=== PATIENT | female | born 1955 | race Caucasian/White ===

== ENCOUNTER 2018-10-20 11:31 | Emergency (ER) | payer OTHER ==
[2018-10-20] MEDS ORDERED: ONDANSETRON 4 MG/2 ML VIAL IVP ONE (12:34)
[2018-10-20] MEDS ORDERED: METOCLOPRAMIDE 10 MG/2 ML VIAL IVP ONE (12:37)
[2018-10-20] MEDS ORDERED: DEXAMETHASONE 10 MG/ML VIAL IVP ONE (12:37)
[2018-10-20] MEDS ORDERED: NS 1,000 ML IV ONE ×2 (12:37→14:14)
[2018-10-20 12:38] LABS: PLATELET COUNT 310 10^3/uL (150-400)
[2018-10-20] MEDS ORDERED: ASPIRIN 81 MG CHEWABLE TAB PO ONE (12:41)
--- NOTE | 2018-10-20 12:44 | EDPHY ---
H & P Stated Complaint: Mid-[place] CP rad to back since last night, nausea, no relief, headache Time Seen by Provider: 10/20/18 12:34 HPI/ROS: CHIEF COMPLAINT: Chest pain and headache HISTORY OF PRESENT ILLNESS: The patient is a 63-year-old female who states that she went skiing yesterday which often gives her headache. When she got home around 6:00 p.m. She developed a migraine. She states that she has had migraines in the past but not for about 20 years. She does not remember having an aura. No fever. No trauma. Then this morning she developed chest pain as well. No shortness of breath. No nausea. No history of cardiac disease. No history of pulmonary disease. No recent infections. She states that the pain is in her sternal area and radiates to her back. No weakness or numbness. No vision changes. Severity: Moderate Modifying factors: None REVIEW OF SYSTEMS: Constitutional: denies: chills, fever, recent illness, recent injury EENTM: denies: blurred vision, double vision, nose congestion Respiratory: denies: cough, shortness of breath Cardiac: See HPI Gastrointestinal/Abdominal: denies: abdominal pain, diarrhea, nausea, vomiting, blood streaked stools Genitourinary: denies: dysuria, frequency, hematuria, pain Musculoskeletal: denies: joint pain, muscle pain Skin: denies: lesions, rash, jaundice, bruising Neurological: denies: headache, numbness, paresthesia, tingling, dizziness, weakness Hematologic/Lymphatic: denies: blood clots, easy bleeding, easy bruising Immunologic/allergic: denies: HIV/AIDS, transplant 10 systems reviewed and negative except as noted EXAM: GENERAL: Well-appearing, well-nourished and in no acute distress. HEAD: Atraumatic, normocephalic. EYES: Pupils equal round and reactive to light, extraocular movements intact, sclera anicteric, conjunctiva are normal. ENT: TMs normal, nares patent, oropharynx clear without exudates. Moist mucous membranes. NECK: Normal range of motion, supple without lymphadenopathy or JVD. LUNGS: Breath sounds clear to auscultation bilaterally and equal. No wheezes rales or rhonchi. HEART: Regular rate and rhythm without murmurs, rubs or gallops. ABDOMEN: Soft, nontender, normoactive bowel sounds. No guarding, no rebound. No masses appreciated. BACK: No CVA tenderness, no spinal tenderness, step-offs or deformities EXTREMITIES: Normal range of motion, no pitting or edema. No clubbing or cyanosis. NEUROLOGICAL: Cranial nerves II through XII grossly intact. Normal speech, normal gait. 5/5 strength, normal movement in all extremities, normal sensation , normal reflexes PSYCH: Normal mood, normal affect. SKIN: Warm, dry, normal turgor, no visible rashes or lesions. Source: Patient Exam Limitations: No limitations - Personal History Current Tetanus/Diphtheria Vaccine: Yes - Medical/Surgical History Hx Asthma: No Hx Chronic Respiratory Disease: No Hx Diabetes: No Hx Cardiac Disease: No Hx Renal Disease: No Hx Cirrhosis: No Hx Alcoholism: No Hx HIV/AIDS: No Hx Splenectomy or Spleen Trauma: No Other PMH: R hip replace - Family History Significant Family History: No pertinent family hx - Social History Smoking Status: Never smoked Alcohol Use: Sober Drug Use: None Constitutional: Initial Vital Signs Temperature (C) 36.5 C 10/20/18 11:38 Heart Rate 90 10/20/18 11:38 Respiratory Rate 18 10/20/18 11:38 Blood Pressure 94/66 L 10/20/18 11:38 O2 Sat (%) 93 10/20/18 11:38 O2 Delivery Mode Room Air Allergies/Adverse Reactions: No Known Allergies Allergy (Unverified 10/21/18 05:28) Home Medications: Medication Instructions Recorded Aspirin [Aspirin 81mg (*)] 81 mg PO DAILY 10/21/18 Cholecalciferol Vit D3 [Vitamin D3 3,000 units PO DAILY 10/21/18 (*)] Herbals/Supplements -Info Only 1 ea PO DAILY 10/21/18 Simvastatin [Simvastatin] 10 mg PO HS 10/21/18 Medical Decision Making - Diagnostics EKG Interpretation: An EKG obtained and was read and documented in trace view. Please see trace view for full reading and report. Sinus rhythm, right bundle branch block new compared to 2009. A repeat EKG obtained and was read and documented in trace view. Please see trace view for full reading and report. Right bundle branch block, no acute ischemic changes, unchanged from previous Imaging: Discussed imaging studies w/ call center dispatcher Radiologist ED Course/Re-evaluation: Patient's headache and chest pain have resolved. Repeat troponin EKG remain reassuring. Discussed further observation or admission. Engaged in shared decision making. Patient is eager to go home. She states that she thinks she was just dehydrated and feels much better after the IV hydration. Blood pressure is currently 102/64 which is baseline for her. Discussed indications for returning. We also discussed importance of follow-up. Differential Diagnosis: Partial list of the Differential diagnosis considered include but were not limited to; acute coronary disease, dehydration, viral infection, migraine and although unlikely based on the history and physical exam, I also considered dissection, aneurysm, pneumonia, pneumothorax. I discussed these differential diagnoses and the plan with the patient as well as the usual and expected course. The patient understands that the diagnosis is provisional and that in medicine we are not always correct and that further workup is often warranted. Usual and customary warnings were given. All of the patient's questions were answered. The patient was instructed to return to the emergency department should the symptoms at all worsen or return, otherwise to followup with the physician as we discussed. - Data Points Laboratory Results: Laboratory Results 10/20/18 12:00 10/20/18 12:00 Medications Given: Discontinued Medications Aspirin (Aspirin) 324 mg PO EDNOW ONE Stop: 10/20/18 12:42 Last Admin: 10/20/18 13:18 Dose: 324 mg Dexamethasone (Decadron Injection) 10 mg IVP EDNOW ONE Stop: 10/20/18 12:38 Last Admin: 10/20/18 13:19 Dose: 10 mg Sodium Chloride (Ns) 1,000 mls @ 0 mls/hr IV ONCE ONE; Wide Open PRN Reason: Protocol Stop: 10/20/18 12:38 Last Admin: 10/20/18 13:19 Dose: 1,000 mls Sodium Chloride (Ns) 1,000 mls @ 0 mls/hr IV EDNOW ONE; Wide Open PRN Reason: Protocol Stop: 10/20/18 14:15 Last Admin: 10/20/18 14:40 Dose: 1,000 mls Ketorolac Tromethamine (Toradol) 30 mg IVP EDNOW ONE Stop: 10/20/18 15:23 Last Admin: 10/20/18 15:24 Dose: 30 mg Metoclopramide HCl (Reglan Injection) 10 mg IVP EDNOW ONE Stop: 10/20/18 12:38 Last Admin: 10/20/18 13:18 Dose: 10 mg Ondansetron HCl (Zofran) 4 mg IVP EDNOW ONE Stop: 10/20/18 12:35 Last Admin: 10/20/18 12:43 Dose: 4 mg Point of Care Test Results: Chemistry 10/20/18 10/20/18 14:28 12:24 POC Troponin I 0.01 ng/mL ng/mL 0.01 ng/mL ng/mL (0.00-0.08) (0.00-0.08) Departure - Departure Disposition: Home, Routine, Self-Care Clinical Impression: Chest pain Qualifiers: Chest pain type: unspecified Qualified Code(s): R07.9 - Chest pain, unspecified Migraine Qualifiers: Migraine type: unspecified Status migrainosus presence: without status migrainosus Intractability: not intractable Qualified Code(s): G43.909 - Migraine, unspecified, not intractable, without status migrainosus Condition: Serious Instructions: Chest Pain (ED), Migraine Headache (ED) Referrals: Ariana Dodge MD [Primary Care Provider] - 2-3 days, call for appt.
[2018-10-20] MEDS ORDERED: IOPAMIDOL (ISOVUE 370) 100 ML BTL IV ONE (12:47)
--- NOTE | 2018-10-20 12:47 | CPEKG ---
Test Reason : OPEN Blood Pressure : / mmHG Vent. Rate : 083 BPM Atrial Rate : 083 BPM P-R Int : 156 ms QRS Dur : 125 ms QT Int : 406 ms P-R-T Axes : 037 031 -01 degrees QTc Int : 477 ms Sinus rhythm Probable left atrial enlargement Right bundle branch block Confirmed by Manan Horne ([id number]) on 10/20/2018 12:46:36 PM Referred By: Confirmed By:Manan Horne
[2018-10-20 12:49] LABS: INR 0.95 (0.83-1.16); PROTIME(PATIENT) 12.9 SEC (12.0-15.0)
--- NOTE | 2018-10-20 14:29 | CPEKG ---
Test Reason : OPEN Blood Pressure : / mmHG Vent. Rate : 083 BPM Atrial Rate : 083 BPM P-R Int : 161 ms QRS Dur : 128 ms QT Int : 415 ms P-R-T Axes : 039 031 -12 degrees QTc Int : 488 ms Sinus rhythm Right bundle branch block Confirmed by Manan Horne ([id number]) on 10/20/2018 2:28:51 PM Referred By: Confirmed By:Manan Horne
[2018-10-20] MEDS ORDERED: KETOROLAC 30 MG/1 ML SDV IVP ONE (15:22)
[2018-10-20 15:33] VITALS: BP 114/54
== END 2018-10-20 15:33 | disposition home or self-care (01) ==
DX: G43.909 Migraine, unspecified, not intractable, without status migrainosus (principal); Z96.641 Presence of right artificial hip joint
CPT/HCPCS: 84484-PO; 96374; J1100; J1885; J2405; J2765; Q9967

== ENCOUNTER 2018-10-21 05:26 | Inpatient (IN) | payer OTHER ==
[2018-10-21] MEDS ORDERED: NS 1,000 ML IV ONE ×2 (05:41→09:13)
--- NOTE | 2018-10-21 05:41 | EDPHY ---
H & P Stated Complaint: SOB, "constant cough" Time Seen by Provider: 10/21/18 05:41 HPI/ROS: HPI CHIEF COMPLAINT: Shortness of breath, cough, hypoxia. HISTORY OF PRESENT ILLNESS: 63-year-old female, presents emergency room with progressively worsening shortness of breath over the last evening. Started coughing around 8:00 p.m.. Progressively getting worse. Could not catch her breath tonight. Cough is rather nonproductive with some sputum. Does not like to take a deep breath in. When she takes deep breath in it causes her to cough worse. No chest pain or chest pressure. Does endorse shortness of breath. It is noted upon arrival to the emergency room the patient is hypoxic 79% room air Additionally noted to be tachycardic. Not hypotensive. Patient states she has otherwise felt well. No fever. She went skiing on Wednesday did developed a headache and some shortness of breath. Past Medical History: Denies significant medical history Past Surgical History: Denies significant surgical history Social History: Denies drugs alcohol tobacco. Family History: Noncontributory. ROS REVIEW OF SYSTEMS: 10 Systems were reviewed and negative with the exception of the elements mentioned in the history of present illness. Exam Constitutional respiratory distress, triage nursing summary reviewed, vital signs reviewed, awake/alert. Hypoxic tachycardic. 79% room air bat Eyes normal conjunctivae and sclera, EOMI, PERRLA. HENT normal inspection, atraumatic, moist mucus membranes, no epistaxis, neck supple/ no meningismus, no raccoon eyes. Respiratory decreased breath sounds bilaterally. Crackles right lung. Faint wheezing. Cardiovascular tachycardic regular rhythm, no murmur, no edema, distal pulses normal. Gastrointestinal soft, non-tender, no rebound, no guarding, normal bowel sounds, no distension, no pulsatile mass. Genitourinary no CVA tenderness. Musculoskeletal no midline vertebral tenderness, full range of motion, no calf swelling, no tenderness of extremities, no meningismus, good pulses, neurovascularly intact. Skin pink, warm, & dry, no rash, skin atraumatic. Neurologic awake, alert and oriented x 3, AAOx3, moves all 4 extremities equally, motor intact, sensory intact, CN II-XII intact, normal cerebellar, normal vision, normal speech. Psychiatric normal mood/affect. Heme/Lymph/Immune no lymphadenopathy. Differential Diagnosis: Includes but is not limited to in a particular order acute hypoxic respiratory failure, pneumonia, high altitude pulmonary edema, CHF , ACS, PE Medical Decision Making: Plan for this patient IV establishment blood draw, IV fluid bolus, DuoNeb breathing treatment, oxygen supplemental, telemetry monitor, EKG, troponin, D-dimer chest x-ray. Re-evaluation: EKG interpretation by me on record in [employer] system. Impression time of EKG 5:50 a.m. Sinus tach 110 right bundle-branch block present. No signs of ST elevation. Compared to the old EKG October 20 is noted be different for tachycardia. This patient's BNP is noted to be elevated. The chest x-ray shows pulmonary edema. I am concerned about decompensated heart failure. Her fluids have been held here. I have ordered the patient IV Lasix. The patient be admitted to the hospitalist service for decompensated heart failure. She will need an echocardiogram. The patient's lactic acid is noted to be elevated. However she is afebrile here. WBC noted. I do not believe this is from sepsis. Believe this to be from end-organ damage from CHF. 7:01 a.m. The hospitalist service as been consult Dr. Nick. Accepts admission. Patient need to be admitted for CHF, hypoxia, pulmonary edema volume overload. IV Lasix 40 mg has been ordered. IV fluids have been stopped. EKG shows no ST elevation Unclear etiology of her CHF at this time. I have ordered echo. Updated patient agrees for admission. Patient is hemodynamically stable for admission. Source: Patient - Personal History Current Tetanus Diphtheria and Acellular Pertussis (TDAP): Yes - Medical/Surgical History Hx Asthma: No Hx Chronic Respiratory Disease: No Hx Diabetes: No Hx Cardiac Disease: No Hx Renal Disease: No Hx Cirrhosis: No Hx Alcoholism: No Hx HIV/AIDS: No Hx Splenectomy or Spleen Trauma: No Other PMH: R hip replace - Social History Smoking Status: Never smoked Constitutional: Initial Vital Signs Temperature (C) 36.6 C 10/21/18 05:28 Heart Rate 109 H 10/21/18 05:28 Respiratory Rate 20 10/21/18 05:28 Blood Pressure 97/72 L 10/21/18 05:28 O2 Sat (%) 82 L 10/21/18 05:28 O2 Delivery Mode Oxymizer O2 (L/minute) 10 Allergies/Adverse Reactions: No Known Allergies Allergy (Unverified 10/21/18 05:28) Home Medications: Medication Instructions Recorded Aspirin [Aspirin 81mg (*)] 81 mg PO DAILY 10/21/18 Cholecalciferol Vit D3 [Vitamin D3 3,000 units PO DAILY 10/21/18 (*)] Herbals/Supplements -Info Only 1 ea PO DAILY 10/21/18 Simvastatin [Simvastatin] 10 mg PO HS 10/21/18 Medical Decision Making - Data Points Laboratory Results: Laboratory Results 10/21/18 05:45 10/21/18 05:45 Microbiology Results: MICROBIOLOGY 10/21/18 06:09 Blood Blood Culture - Preliminary Gram Positive Zaki 10/21/18 06:09 Blood Blood Panel (PCR) - Final No Organism Detected By Pcr 10/21/18 05:56 Blood Blood Culture - Final Medications Given: Hydrocodone Bitart/Acetaminophen (Huron 5/325) 1 - 2 tab PO Q4HRS PRN PRN Reason: Pain, Moderate Able to Take PO Stop: 11/01/18 12:40 Last Admin: 10/26/18 19:50 Dose: 1 tab Aspirin (Aspirin) 81 mg PO DAILY [facility] Stop: 04/20/19 08:59 Last Admin: 10/26/18 08:13 Dose: 81 mg Cyclobenzaprine HCl (Flexeril) 5 mg PO TID PRN PRN Reason: Pain, Moderate Stop: 04/22/19 08:59 Last Admin: 10/24/18 11:35 Dose: 5 mg Ibuprofen (Motrin) 600 mg PO QID [facility] Stop: 04/24/19 11:59 Last Admin: 10/26/18 21:57 Dose: 600 mg Metoprolol Tartrate (Lopressor) 12.5 mg PO BID [facility] Stop: 04/24/19 20:59 Last Admin: 10/26/18 21:55 Dose: 12.5 mg Miscellaneous (Tara-Ease 2 Gm) 2 rachana TP PRN PRN PRN Reason: Dry Nose Stop: 04/24/19 14:39 Last Admin: 10/26/18 16:14 Dose: 2 rachana Pantoprazole Sodium (Protonix) 40 mg PO DAILY [facility] Stop: 04/21/19 12:40 Last Admin: 10/26/18 08:13 Dose: 40 mg Pravastatin Sodium (Pravachol) 20 mg PO HS [facility] Stop: 04/19/19 20:59 Last Admin: 10/26/18 21:55 Dose: 20 mg Warfarin Sodium (Message-Coumadin Daily Order) 1 ea MISC DAILY@1500 [facility] Stop: 04/23/19 14:59 Last Admin: 10/26/18 13:53 Dose: Not Given Discontinued Medications Adenosine (Adenosine) Confirm Administered Dose 12 mg .ROUTE .STK-MED ONE Stop: 10/21/18 10:45 Last Admin: 10/21/18 11:47 Dose: Not Given Adenosine (Adenosine) Confirm Administered Dose 12 mg .ROUTE .STK-MED ONE Stop: 10/22/18 07:03 Last Admin: 10/22/18 09:44 Dose: Not Given Albumin Human (Alburx 5) Confirm Administered Dose 1,000 ml IV .STK-MED ONE Stop: 10/21/18 10:46 Last Admin: 10/21/18 12:16 Dose: Not Given Albumin Human (Alburx 5) Confirm Administered Dose 1,000 ml IV .STK-MED ONE Stop: 10/22/18 07:01 Last Admin: 10/22/18 09:44 Dose: Not Given Albuterol/Ipratropium (Duoneb) 3 ml IH EDNOW ONE Stop: 10/21/18 05:48 Last Admin: 10/21/18 05:56 Dose: 3 ml Aminocaproic Acid (Amicar) 15 gm IV ONCALL ONE Stop: 10/22/18 06:01 Last Admin: 10/22/18 09:45 Dose: Not Given Amiodarone HCl (Amiodarone Hcl) Confirm Administered Dose 300 mg .ROUTE .STK- MED ONE Stop: 10/21/18 10:45 Last Admin: 10/21/18 11:48 Dose: Not Given Amiodarone HCl (Amiodarone Hcl) Confirm Administered Dose 450 mg .ROUTE .STK- MED ONE Stop: 10/22/18 07:03 Last Admin: 10/22/18 09:45 Dose: Not Given Aspirin Buffered (Aspirin Ec) 325 mg PO ONCALL ONE Stop: 10/21/18 09:14 Last Admin: 10/21/18 11:45 Dose: Not Given Calcium Chloride (Calcium Chloride) Confirm Administered Dose 3 gm .ROUTE .STK- MED ONE Stop: 10/21/18 10:43 Last Admin: 10/21/18 11:46 Dose: Not Given Calcium Chloride (Calcium Chloride) Confirm Administered Dose 3 gm [facility] Stop: 10/21/18 10:46 Last Admin: 10/21/18 12:16 Dose: Not Given Calcium Chloride (Calcium Chloride) Confirm Administered Dose 6 gm .[facility]TE [facility] Stop: 10/22/18 07:01 Last Admin: 10/22/18 09:45 Dose: Not Given Cefazolin Sodium (Ancef) Confirm Administered Dose 2 gm .[facility] Stop: 10/21/18 10:45 Last Admin: 10/21/18 11:48 Dose: Not Given Cefazolin Sodium (Ancef) Confirm Administered Dose 2 gm .[facility] Stop: 10/22/18 07:03 Last Admin: 10/22/18 09:47 Dose: Not Given Diazepam (Valium) 5 mg PO ONCALL ONE Stop: 10/21/18 09:14 Last Admin: 10/21/18 11:45 Dose: Not Given Diphenhydramine HCl (Benadryl) 25 mg PO ONCALL ONE Stop: 10/21/18 09:14 Last Admin: 10/21/18 11:45 Dose: Not Given Dopamine HCl/Dextrose (Dopamine 1600 Mcg/Ml (Premix)) Confirm Administered Dose 400 mg IV [facility] Stop: 10/21/18 10:44 Last Admin: 10/21/18 11:47 Dose: Not Given Dopamine HCl/Dextrose (Dopamine 1600 Mcg/Ml (Premix)) Confirm Administered Dose 400 mg IV [facility] Stop: 10/22/18 07:03 Last Admin: 10/22/18 09:47 Dose: Not Given Famotidine (Pepcid) 20 mg PO ONCALL ONE Stop: 10/21/18 09:14 Last Admin: 10/21/18 11:46 Dose: Not Given Furosemide (Lasix Injection) 40 mg IVP EDNOW ONE Stop: 10/21/18 06:33 Last Admin: 10/21/18 06:37 Dose: 40 mg Furosemide (Lasix Injection) 40 mg IVP ONCE ONE Stop: 10/21/18 13:16 Last Admin: 10/21/18 13:15 Dose: 40 mg Furosemide (Lasix Injection) 40 mg IVP ONCE ONE Stop: 10/23/18 10:08 Last Admin: 10/23/18 11:02 Dose: 40 mg Furosemide (Lasix Injection) 40 mg IVP ONCE ONE Stop: 10/24/18 09:11 Last Admin: 10/24/18 09:48 Dose: 40 mg Furosemide (Lasix Injection) 40 mg IVP DAILY ALEAH Stop: 04/23/19 09:14 Last Admin: 10/26/18 08:13 Dose: 40 mg Heparin Sodium (Porcine) (Heparin Injection) Confirm Administered Dose 10,000 unit .ROUTE .STK-MED ONE Stop: 10/21/18 10:44 Last Admin: 10/21/18 11:47 Dose: Not Given Heparin Sodium (Porcine) (Heparin Injection) Confirm Administered Dose 4,000 unit .ROUTE .STK-MED ONE Stop: 10/21/18 10:47 Last Admin: 10/21/18 12:17 Dose: Not Given Heparin Sodium (Porcine) (Heparin Injection) Confirm Administered Dose 14,000 unit .ROUTE .STK-MED ONE Stop: 10/22/18 07:02 Last Admin: 10/22/18 09:47 Dose: Not Given Heparin Sodium (Porcine) (Heparin Sc Injection) 5,000 unit SC Q8HRS ALEAH Stop: 04/21/19 05:59 Last Admin: 10/26/18 06:43 Dose: 5,000 unit Sodium Chloride (Ns) 1,000 mls @ 0 mls/hr IV EDNOW ONE; Wide Open PRN Reason: Protocol Stop: 10/21/18 05:42 Last Admin: 10/21/18 05:56 Dose: 1,000 mls Levofloxacin/Dextrose (Levaquin 750 Mg (Premix)) 150 mls @ 100 mls/hr IV EDNOW ONE PRN Reason: Protocol Stop: 10/21/18 07:31 Last Admin: 10/21/18 06:08 Dose: 150 mls Sodium Chloride (Ns) 1,000 mls @ 0 mls/hr IV ONCALL ONE PRN Reason: TKO Stop: 10/21/18 09:14 Last Admin: 10/21/18 11:46 Dose: Not Given Propofol (Diprivan 10 Mg/Ml (Premix)) 100 mls @ 0 mls/hr IV CONT ALEAH; Per Protocol PRN Reason: Protocol Stop: 04/19/19 12:00 Last Admin: 10/21/18 23:35 Dose: 100 mls Fentanyl/Sodium Chloride (Fentanyl 10 Mcg/Ml (Premix)) 100 mls @ 0 mls/hr IV CONT ALEAH; Per Protocol PRN Reason: Protocol Stop: 10/31/18 12:29 Last Admin: 10/21/18 12:09 Dose: 100 mls Miscellaneous Medication (Cardioplegia [place] Formula) 1,052.8 mls @ 0 mls/ hr PF ONCALL ONE PRN Reason: As Directed Stop: 10/22/18 06:01 Last Admin: 10/22/18 09:47 Dose: Not Given Cefazolin Sodium/Dextrose (Ancef) 100 mls @ 200 mls/hr IV ONCALL ONE PRN Reason: Protocol Stop: 10/22/18 06:29 Last Admin: 10/22/18 08:18 Dose: 100 mls Dopamine HCl/Dextrose (Dopamine 1600 Mcg/Ml (Premix)) 250 mls @ 0 mls/hr IV ONCALL ONE PRN Reason: As Directed Stop: 10/22/18 06:01 Last Admin: 10/22/18 09:47 Dose: Not Given Insulin Human Regular 100 unit (/ Sodium Chloride) 101 mls @ 0 mls/hr IV ONCALL ONE PRN Reason: As Directed Stop: 10/22/18 06:01 Last Admin: 10/22/18 09:48 Dose: Not Given Norepinephrine 16 mg/ Sodium (Chloride) 266 mls @ 0 mls/hr IV ONCALL ONE PRN Reason: As Directed Stop: 10/22/18 06:01 Last Admin: 10/22/18 09:49 Dose: Not Given Phenylephrine HCl 50 mg/ (Sodium Chloride) 255 mls @ 0 mls/hr IV ONCALL ONE PRN Reason: As Directed Stop: 10/22/18 06:01 Last Admin: 10/22/18 09:49 Dose: Not Given Nicardipine/Sodium Chloride (Cardene 0.1 Mg/Ml (Premix)) 200 mls @ 0 mls/hr IV ONCALL ONE PRN Reason: As Directed Stop: 10/22/18 06:01 Last Admin: 10/22/18 09:49 Dose: Not Given Dexmedetomidine HCl 400 mcg/ (Sodium Chloride) 104 mls @ 0 mls/hr IV CONT ALEAH; Per Protocol PRN Reason: Protocol Stop: 04/20/19 11:29 Last Admin: 10/22/18 15:46 Dose: 104 mls Insulin Human Regular 100 unit (/ Sodium Chloride) 101 mls @ 0 mls/hr IV CONT ALEAH; Per Protocol PRN Reason: Protocol Stop: 04/20/19 12:29 Last Admin: 10/22/18 12:15 Dose: 101 mls Albumin Human (Alburx 5) 250 mls @ 100 mls/hr IV PRN PRN PRN Reason: Volume Expansion Stop: 10/23/18 12:41 Last Admin: 10/22/18 15:45 Dose: 250 mls Nicardipine/Sodium Chloride (Cardene 0.1 Mg/Ml (Premix)) 200 mls @ 0 mls/hr IV CONT ALEAH; Titrate PRN Reason: Protocol Stop: 04/20/19 12:59 Last Admin: 10/22/18 12:45 Dose: 200 mls Potassium Chloride (Potassium Cl 20 Meq (Premix)) 50 mls @ 0 mls/hr IV PRN PRN ; Protocol; As Directed PRN Reason: K+ 4mEq/L or below Stop: 10/23/18 06:40 Last Admin: 10/22/18 16:52 Dose: 50 mls Cefazolin Sodium/Dextrose (Ancef 1 Gm (Premix)) 50 mls @ 200 mls/hr IV Q8HRS ALEAH PRN Reason: Protocol Stop: 10/23/18 22:14 Last Admin: 10/23/18 22:54 Dose: 50 mls Norepinephrine 16 mg/ Sodium (Chloride) 266 mls @ 0 mls/hr IV CONT ALEAH; Per Protocol PRN Reason: Protocol Stop: 04/20/19 16:29 Last Admin: 10/23/18 04:02 Dose: 266 mls Albumin Human (Alburx 5) 250 mls @ 0 mls/hr IV ONCE ONE PRN Reason: As Directed Stop: 10/22/18 18:01 Last Admin: 10/22/18 17:35 Dose: 250 mls Ketorolac Tromethamine (Toradol) 30 mg IVP Q6HRS ALEAH Stop: 10/27/18 22:59 Last Admin: 10/26/18 06:44 Dose: 30 mg Lidocaine HCl (Lidocaine Hcl 2%) Confirm Administered Dose 200 mg .ROUTE .STK- MED ONE Stop: 10/21/18 10:46 Last Admin: 10/21/18 12:16 Dose: Not Given Lidocaine HCl (Lidocaine Hcl 2%) Confirm Administered Dose 200 mg .ROUTE .STK- MED ONE Stop: 10/22/18 07:02 Last Admin: 10/22/18 09:48 Dose: Not Given Magnesium Sulfate (Magnesium Sulfate) Confirm Administered Dose 4 gm .ROUTE .STK -MED ONE Stop: 10/21/18 10:47 Last Admin: 10/21/18 12:17 Dose: Not Given Magnesium Sulfate (Magnesium Sulfate) Confirm Administered Dose 4 gm .ROUTE .STK -MED ONE Stop: 10/22/18 07:03 Last Admin: 10/22/18 09:48 Dose: Not Given Mannitol (Mannitol 25%) 25 gm IVP ONCALL ONE Stop: 10/22/18 06:01 Last Admin: 10/22/18 09:48 Dose: Not Given Methylprednisolone Sodium Succinate (Solu-Medrol) Confirm Administered Dose 1 gm .ROUTE .STK-MED ONE Stop: 10/21/18 10:47 Last Admin: 10/21/18 12:18 Dose: Not Given Methylprednisolone Sodium Succinate (Solu-Medrol) Confirm Administered Dose 1 gm .ROUTE .STK-MED ONE Stop: 10/22/18 07:03 Last Admin: 10/22/18 09:48 Dose: Not Given Milrinone Lactate/Dextrose (Primacor 200 Mcg/Ml (Premix)) Confirm Administered Dose 20 mg IV .STK-MED ONE Stop: 10/21/18 10:43 Last Admin: 10/21/18 11:46 Dose: Not Given Milrinone Lactate/Dextrose (Primacor 200 Mcg/Ml (Premix)) Confirm Administered Dose 20 mg IV .STK-MED ONE Stop: 10/22/18 07:02 Last Admin: 10/22/18 09:48 Dose: Not Given Mineral Oil (Muri-Lube Mineral Oil) Confirm Administered Dose 10 ml .ROUTE .STK- MED ONE Stop: 10/22/18 07:25 Last Admin: 10/22/18 11:29 Dose: Not Given Morphine Sulfate (Morphine) 2 - 4 mg IVP Q1HR PRN PRN Reason: Pain, Severe Unable to Take PO Stop: 11/01/18 12:40 Last Admin: 10/23/18 22:10 Dose: 2 mg Mupirocin (Bactroban 2%) 1 rachana NS ONCE ONE Stop: 10/22/18 06:01 Last Admin: 10/22/18 07:40 Dose: 1 applic Mupirocin (Bactroban 2%) 1 rachana NS BID ALEAH PRN Reason: Protocol Stop: 10/24/18 20:59 Last Admin: 10/24/18 08:15 Dose: 1 rachana Nicardipine/Sodium Chloride (Cardene 0.1 Mg/Ml (Premix)) Confirm Administered Dose 20 mg IV .STK-MED ONE Stop: 10/21/18 10:44 Last Admin: 10/21/18 11:47 Dose: Not Given Nicardipine/Sodium Chloride (Cardene 0.1 Mg/Ml (Premix)) Confirm Administered Dose 20 mg IV .STK-MED ONE Stop: 10/22/18 07:03 Last Admin: 10/22/18 09:48 Dose: Not Given Nitroglycerin/Dextrose (Nitroglycerin 200 Mcg/Ml (Premix)) Confirm Administered Dose 50 mg IV .STK-MED ONE Stop: 10/21/18 10:45 Last Admin: 10/21/18 11:48 Dose: Not Given Nitroglycerin/Dextrose (Nitroglycerin 200 Mcg/Ml (Premix)) Confirm Administered Dose 50 mg IV .STK-MED ONE Stop: 10/22/18 07:04 Last Admin: 10/22/18 09:49 Dose: Not Given Ondansetron HCl (Zofran) 4 mg IVP ONCE ONE Stop: 10/21/18 08:40 Last Admin: 10/21/18 08:44 Dose: 4 mg Pantoprazole Sodium (Protonix) 40 mg IVP ONCE ONE Stop: 10/22/18 12:42 Last Admin: 10/22/18 13:57 Dose: 40 mg Pneumococcal 13-Valent Conj Vacc (Prevnar 13 Syringe) 0.5 ml IM .ONCE ONE Stop: 10/23/18 11:17 Last Admin: 10/23/18 13:31 Dose: 0.5 ml Potassium Chloride (Klor-Con) 20 meq PO DAILY ALEAH Stop: 04/23/19 09:29 Last Admin: 10/25/18 09:41 Dose: Not Given Potassium Chloride (Klor-Con) 20 meq PO DAILY ALE[facility] Stop: 04/23/19 09:44 Last Admin: 10/26/18 08:13 Dose: 20 meq Protamine Sulfate (Protamine Sulfate) Confirm Administered Dose 100 mg IVP .STK- MED ONE Stop: 10/21/18 10:43 Last Admin: 10/21/18 11:46 Dose: Not Given Protamine Sulfate (Protamine Sulfate) Confirm Administered Dose 400 mg IVP .STK- MED ONE Stop: 10/22/18 07:01 Last Admin: 10/22/18 09:49 Dose: Not Given Senna/Docusate Sodium (Senokot-S) 1 - 2 tab PO BID ALEAH PRN Reason: Protocol Stop: 04/20/19 20:59 Last Admin: 10/26/18 08:13 Dose: 1 tab Sodium Bicarbonate (Sodium Bicarbonate) Confirm Administered Dose 350 meq .ROUTE .STK-MED ONE Stop: 10/21/18 10:44 Last Admin: 10/21/18 11:47 Dose: Not Given Sodium Bicarbonate (Sodium Bicarbonate) Confirm Administered Dose 250 meq .ROUTE .STK-MED ONE Stop: 10/21/18 10:46 Last Admin: 10/21/18 12:16 Dose: Not Given Sodium Bicarbonate (Sodium Bicarbonate) Confirm Administered Dose 250 meq .ROUTE .STK-MED ONE Stop: 10/22/18 07:01 Last Admin: 10/22/18 09:49 Dose: Not Given Sodium Bicarbonate (Sodium Bicarbonate) Confirm Administered Dose 350 meq .ROUTE .STK-MED ONE Stop: 10/22/18 07:02 Last Admin: 10/22/18 09:49 Dose: Not Given Sodium Citrate (Acd-A) Confirm Administered Dose 500 ml .ROUTE .STK-MED ONE Stop: 10/21/18 10:47 Last Admin: 10/21/18 12:17 Dose: Not Given Sodium Citrate (Acd-A) 500 ml MISC ONCALL ONE Stop: 10/22/18 06:01 Last Admin: 10/22/18 09:47 Dose: Not Given Sodium Citrate (Acd-A) Confirm Administered Dose 500 ml .ROUTE .STK-MED ONE Stop: 10/22/18 07:03 Last Admin: 10/22/18 09:47 Dose: Not Given Warfarin Sodium (Coumadin) 2.5 mg PO DAILY AT 4PM ALEAH Stop: 04/22/19 15:59 Last Admin: 10/24/18 17:42 Dose: 2.5 mg Warfarin Sodium (Coumadin) 5 mg PO ONCE@16 ONE Stop: 10/25/18 16:01 Last Admin: 10/25/18 16:38 Dose: 5 mg Warfarin Sodium (Coumadin) 2.5 mg PO ONCE@16 ONE Stop: 10/26/18 16:01 Last Admin: 10/26/18 16:11 Dose: 2.5 mg Point of Care Test Results: Chemistry 10/21/18 06:14 POC Troponin I 0.02 ng/mL ng/mL (0.00-0.08) Departure - Departure Disposition: [facility] Inpatient Acute Clinical Impression: Acute decompensated heart failure, Hypoxia Pulmonary edema Qualifiers: Chronicity: acute Qualified Code(s): J81.0 - Acute pulmonary edema Condition: Fair
[2018-10-21] MEDS ORDERED: IPRATROPIUM/ALBUTEROL 3 ML DEYVIAL IH ONE (05:47)
[2018-10-21 05:54] LABS: PLATELET COUNT 362 10^3/uL (150-400)
[2018-10-21 06:03] LABS: INR 1.04 (0.83-1.16); PROTIME(PATIENT) 13.8 SEC (12.0-15.0)
[2018-10-21 06:05] LABS: CREATINE KINASE 52 IU/L (0-156)
[2018-10-21] MEDS ORDERED: FUROSEMIDE 40 MG/4 ML VIAL IVP ONE ×2 (06:32→13:15)
--- NOTE | 2018-10-21 08:01 | CPEKG ---
Test Reason : OPEN Blood Pressure : / mmHG Vent. Rate : 110 BPM Atrial Rate : 110 BPM P-R Int : 156 ms QRS Dur : 130 ms QT Int : 346 ms P-R-T Axes : 049 059 -10 degrees QTc Int : 469 ms Sinus tachycardia Right bundle branch block Confirmed by Kit Chan ([id number]) on 10/21/2018 8:00:40 AM Referred By: Confirmed By:Kit Chan
[2018-10-21] MEDS ORDERED: ONDANSETRON 4 MG/2 ML VIAL IVP ONE (08:39)
[2018-10-21] MEDS ORDERED: LIDOCAINE 1% 300 MG/30 ML SDV ONE (08:40)
[2018-10-21] MEDS ORDERED: MIDAZOLAM 2 MG/2 ML VIAL ONE (08:40)
[2018-10-21] MEDS ORDERED: fentaNYL 100 MCG/2 ML INJ ONE ×2 (08:40→09:55)
[2018-10-21] MEDS ORDERED: IOPAMIDOL (ISOVUE-370) 150 ML BTL IV ONE (08:40)
--- NOTE | 2018-10-21 08:42 | ECHO ---
[email or web address] [address] [address] Main: [phone] Fax: [email or web address] Echocardiogram Name: EILEEN KEITH MR#: [id number] Study Date: 10/21/2018 Study Time: 07:21 AM Date of : 1955 Age: 63 year(s) Height: 165.1 cm (65 in.) Weight: 68.04 kg (150 lb.) BSA: 1.75 m2 Gender: Female Examination: Echo Indication: CHF, Shortness of breath, Acute Hypoxia Image Quality: Contrast: Requested by: Kit Newell BP: 119 mmHg/74 mmHg Heart Rate: Rhythm: Tachycardia Indication: CHF, Shortness of breath, Acute Hypoxia Procedure Staff Industrial Maintenance Mechanic: Leo Castillo RDCS Reading Physician: Franko Mendez MD Requesting Provider: Conclusions: Normal size left ventricle. No LV hypertrophy. Global hypercontractility of the left ventricle. EF is 81 %. The left atrium is severely dilated. There is severe prolapse of the posterior leaflet of the mitral valve. Severe mitral valve regurgitation is present. Appears mobile structure consistent with torn/ruptured chordae of the mitral valve. There is severe, eccentric mitral regurgitation with pulmonary vein reversal.. The aortic valve is tri-leaflet. The aortic valve is normal in appearance and function. Moderate tricuspid regurgitation is present. The pulmonic valve is normal in appearance and function. No pericardial effusion. Measurements: Chambers Valvular Assessment AV/MV Valvular Assessment TV/PV Normal Normal Normal Name Value Range Name Value Range Name Value Range Ao Josefa (MM): 2.3 cm (2.2 cm-3.7 AV Vmax: 1.25 m/s (1 m/s-1.7 TR Vmax: 3.91 mm/s ( - ) cm) m/s) TR PGmax: 61 mmHg ( - ) IVSd (2D): 0.9 cm (0.6 cm-1.1 AV maxP mmHg ( - ) syst. PAP: 66 mmHg ( - ) cm) LVOT Vmax: 0.96 m/s (0.7 m/s-1.1 PV Vmax: 0.92 m/s (0.6 m/s-0.9 LVDd (2D): 4.7 cm (3.9 cm-5.3 m/s) m/s) cm) YIN (Vmax): 2.2 cm2 ( - ) PV PGmax: 3 mmHg ( - ) LVDs (2D): 2.4 cm (2.1 cm-4 MV E Vmax: 1.53 m/s ( - ) cm) MV A Vmax: 0.81 m/s ( - ) LVPWd (2D): 1.2 cm ( - ) MV E/A: 1.89 ( - ) LVOTd 1.9 cm 1.9 cm mm MV maxP mmHg ( - ) LVEF (2D): 81 (>=54 %) MV meanP mmHg ( - ) Patient: EILEEN KEITH Study Date: 10/21/2018 Page 1 of 2 07:21 AM Continued Measurements: Chambers Valvular Assessment AV/MV Valvular Assessment TV/PV Name Value Name Value Name Value LADs Lon.1 cm MV Annulus: 4.0 cm CVP (est.): 5 mmHg LA Area: 34.6 cm2 MV VTI: 43.80 cm LA Volume: 148 ml MR Vena Contracta: 0.9 cm LA Volume Index: 84.6 ml/m2 MR ERO: 1.180 cm2 MR PISA radius: 16 mm MR Reg. Volume: 125 ml MR Reg. Fraction: 23 % Findings: Left Ventricle: Normal size left ventricle. No LV hypertrophy. Global hypercontractility of the left ventricle. EF is 81 %. No regional wall motion abnormality. Right Ventricle: Normal size right ventricle. Left Atrium: The left atrium is severely dilated. Right Atrium: The right atrium is normal in size. Mitral Valve: There is severe prolapse of the posterior leaflet of the mitral valve. Severe mitral valve regurgitation is present. Appears mobile structure consistent with torn/ruptured chordae of the mitral valve. There is severe, eccentric mitral regurgitation with pulmonary vein reversal.. Aortic Valve: The aortic valve is tri-leaflet. The aortic valve is normal in appearance and function. There is no significant aortic valve regurgitation. Tricuspid Valve: The tricuspid valve appears normal. Moderate tricuspid regurgitation is present. The pulmonary artery pressure is moderately increased. Pulmonic Valve: The pulmonic valve is normal in appearance and function. Aorta: The aorta is normal. Pericardium: No pericardial effusion. Exam Comments: Consider CLARITA exam to further evaluate the mitral valve.. (No Signature Object) Patient: EILEEN KEITH Study Date: 10/21/2018 Page 2 of 2 07:21 AM [id number]
[2018-10-21] MEDS ORDERED: diphenhydrAMINE 25 MG CAP PO ONE (09:13)
[2018-10-21] MEDS ORDERED: ASPIRIN EC 325 MG TAB PO ONE (09:13)
[2018-10-21] MEDS ORDERED: DIAZEPAM 5 MG TAB PO ONE (09:13)
[2018-10-21] MEDS ORDERED: FAMOTIDINE 20 MG TAB PO ONE (09:13)
--- NOTE | 2018-10-21 09:17 | PDANEPAE ---
ANE Past Medical History - Pulmonary History Hx Oxygen in Use at Home: No - Endocrine History Hx Diabetes: No ANE Review of Systems Review of Systems: ANE Patient History - Allergies Allergies/Adverse Reactions: No Known Allergies Allergy (Unverified 10/21/18 05:28) - Home Medications Home Medications: Aspirin [Aspirin 81mg (*)] 81 mg PO DAILY 10/21/18 [Last Taken 10/14/18] Cholecalciferol Vit D3 [Vitamin D3 (*)] 3,000 units PO DAILY 10/21/18 [Last Taken 10/18/18] Herbals/Supplements -Info Only 1 ea PO DAILY 10/21/18 [Last Taken 10/18/18] Simvastatin [Simvastatin] 10 mg PO HS 10/21/18 [Last Taken 10/18/18] - Smoking Hx Smoking Status: Never smoked ANE Labs/Vital Signs - Labs Result Diagrams: 10/21/18 05:45 10/21/18 05:45 - Vital Signs Blood Pressure: 107/64 Heart Rate: 96 Respiratory Rate: 19 O2 Sat (%): 93 Height: 165.1 cm Weight: 68.039 kg
[2018-10-21] MEDS ORDERED: ACETAMINOPHEN 325 MG TAB PO PRN (09:38)
[2018-10-21] MEDS ORDERED: ONDANSETRON 4 MG/2 ML VIAL IVP PRN ×2 (09:38→14:42)
[2018-10-21] MEDS ORDERED: ONDANSETRON DISINTEGRATING 4 MG TAB PO PRN (09:38)
--- NOTE | 2018-10-21 09:40 | PDGENHP ---
History and Physical History and Physical: Briefly: Patient with presentation to the ER with complaints of cough and shortness of breath. Echocardiography with severe MR with what appears to be torn papillary muscle (posterior leaflet). Hyperdynamic LVEF. PND and orthopnea are severe. Given these findings, the patient is to be taken to the [facility] (1) Anesthesia for sedation and air way protection (2) CLARITA for better visualization of the mitral valve pathology (3) Left heart catheterization (4) Intraaortic balloon pump placement Risks and benefits of these procedures were discussed with the patient She understands the risks and the rational for these procedures being required A full H/P will be completed after these emergent procedures are performed
[2018-10-21] MEDS ORDERED: ROCURONIUM 50 MG/5 ML VIAL ONE ×2 (09:57→10:48)
--- NOTE | 2018-10-21 10:11 | PDGENHP ---
History and Physical - Chief Complaint chest pain, SOB - History of Present Illness 63 yo female with no significant past medical history presented to ED with chest pain and SOB. She went skiing at [place] on Wednesday and doesn't recall anything about the day, including how she got home. She thinks she may have noticed shortness of breath that day. She awoke morning with chest pain and pressure and shortness of breath. Her symptoms worsened today and she presented to the ED. She is very orthopneic, unable to lie flat. Reports cough started yesterday, worse when she tries to take a deep breath. Non- productive. Denies fevers/chills or rigors. In the ED, CXR showed pulmonary edema. Echo revealed torrential MR with ruptured papillary muscle. She received 40 mg IV Lasix. Cardiology was consulted and she taken to the rn cardiac cath for intubation, CLARITA, and angiogram. History Information - Allergies/Home Medication List Allergies/Adverse Reactions: No Known Allergies Allergy (Unverified 10/21/18 05:28) Home Medications: Aspirin [Aspirin 81mg (*)] 81 mg PO DAILY 10/21/18 [Last Taken 10/14/18] Cholecalciferol Vit D3 [Vitamin D3 (*)] 3,000 units PO DAILY 10/21/18 [Last Taken 10/18/18] Herbals/Supplements -Info Only 1 ea PO DAILY 10/21/18 [Last Taken 10/18/18] Simvastatin [Simvastatin] 10 mg PO HS 10/21/18 [Last Taken 10/18/18] I have personally reviewed and updated: family history, medical history, social history, surgical history - Past Medical History hyperlipidemia - Surgical History Reports: no pertinent surgical hx - Family History Additional family history: Dad of heart dz in his 70's. Brother had CABG in his 60's. 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 Review of Systems Review of Systems: ROS: 10pt was reviewed & negative except for what was stated in HPI & below Physical Exam Physical Exam: Temp Pulse Resp BP Pulse Ox 36.6 C 96 19 107/64 93 10/21/18 05:28 10/21/18 09:16 10/21/18 09:16 10/21/18 09:16 10/21/18 09:16 O2 (L/minute) 3 Constitutional: no apparent distress Eyes: PERRL Ears, Nose, Mouth, Throat: moist mucous membranes Cardiovascular: regular rate and rhythym, systolic murmur Respiratory: no respiratory distress, inspiratory crackles Gastrointestinal: normoactive bowel sounds, soft, non-tender abdomen Skin: warm Musculoskeletal: full muscle strength Neurologic: AAOx3 Psychiatric: interacting appropriately Lab Data & Imaging Review 10/21/18 05:45 10/21/18 05:45 WBC 18.76 10^3/uL (3.80-9.50) H 10/21/18 05:45 RBC 4.73 10^6/uL (4.18-5.33) 10/21/18 05:45 Hgb 14.7 g/dL (12.6-16.3) 10/21/18 05:45 Hct 44.5 % (38.0-47.0) 10/21/18 05:45 MCV 94.1 fL (81.5-99.8) 10/21/18 05:45 MCH 31.1 pg (27.9-34.1) 10/21/18 05:45 MCHC 33.0 g/dL (32.4-36.7) 10/21/18 05:45 RDW 12.7 % (11.5-15.2) 10/21/18 05:45 Plt Count 362 10^3/uL (150-400) 10/21/18 05:45 MPV 9.7 fL (8.7-11.7) 10/21/18 05:45 Neut % (Auto) 84.2 % (39.3-74.2) H 10/21/18 05:45 Lymph % (Auto) 8.4 % (15.0-45.0) L 10/21/18 05:45 [place] % (Auto) 6.7 % (4.5-13.0) 10/21/18 05:45 Eos % (Auto) 0.1 % (0.6-7.6) L 10/21/18 05:45 Baso % (Auto) 0.2 % (0.3-1.7) L 10/21/18 05:45 Nucleat RBC Rel Count 0.0 % (0.0-0.2) 10/21/18 05:45 Absolute Neuts (auto) 15.80 10^3/uL (1.70-6.50) H 10/21/18 05:45 Absolute Lymphs (auto) 1.58 10^3/uL (1.00-3.00) 10/21/18 05:45 Absolute Monos (auto) 1.26 10^3/uL (0.30-0.80) H 10/21/18 05:45 Absolute Eos (auto) 0.01 10^3/uL (0.03-0.40) L 10/21/18 05:45 Absolute Basos (auto) 0.03 10^3/uL (0.02-0.10) 10/21/18 05:45 Absolute Nucleated RBC 0.00 10^3/uL (0-0.01) 10/21/18 05:45 Immature Gran % 0.4 % (0.0-1.1) 10/21/18 05:45 Immature Gran # 0.08 10^3/uL (0.00-0.10) 10/21/18 05:45 PT 13.8 SEC (12.0-15.0) 10/21/18 05:45 INR 1.04 (0.83-1.16) 10/21/18 05:45 APTT 24.1 SEC (23.0-38.0) 10/21/18 05:45 D-Dimer 0.42 ug/mLFEU (0.00-0.50) 10/21/18 05:45 VBG Lactic Acid 3.0 mmol/L (0.7-2.1) H 10/21/18 05:45 Sodium 137 mEq/L (135-145) 10/21/18 05:45 Potassium 4.5 mEq/L (3.5-5.2) 10/21/18 05:45 Chloride 107 mEq/L (97-110) 10/21/18 05:45 Carbon Dioxide 19 mEq/l (22-31) L 10/21/18 05:45 Anion Gap 11 mEq/L (6-14) 10/21/18 05:45 BUN 24 mg/dL (7-23) H 10/21/18 05:45 Creatinine 0.9 mg/dL (0.6-1.0) 10/21/18 05:45 Estimated GFR > 60 10/21/18 05:45 Glucose 153 mg/dL (70-100) H 10/21/18 05:45 Calcium 9.2 mg/dL (8.5-10.4) 10/21/18 05:45 Magnesium 1.9 mg/dL (1.6-2.3) 10/21/18 05:45 Total Bilirubin 0.8 mg/dL (0.1-1.4) 10/21/18 05:45 Conjugated Bilirubin 0.1 mg/dL (0.0-0.5) 10/21/18 05:45 Unconjugated Bilirubin 0.7 mg/dL (0.0-1.1) 10/21/18 05:45 AST 22 IU/L (14-46) 10/21/18 05:45 ALT 16 IU/L (9-52) 10/21/18 05:45 Alkaline Phosphatase 55 IU/L (38-126) 10/21/18 05:45 Creatine Kinase 52 IU/L (0-156) 10/21/18 05:45 CK-MB (CK-2) Fraction 1.19 ng/mL (0.00-4.55) 10/21/18 05:45 POC Troponin I 0.02 ng/mL (0.00-0.08) 10/21/18 06:14 NT-Pro-B Natriuret Pep 2160 pg/mL (0-125) H 10/21/18 05:45 Total Protein 6.8 g/dL (6.3-8.2) 10/21/18 05:45 Albumin 4.1 g/dL (3.5-5.0) 10/21/18 05:45 Lipase 45 IU/L (23-300) 10/21/18 05:45 Procalcitonin < 0.02 ng/mL (0.02-0.10) L 10/21/18 05:45 Visualized and Interpreted Chest x-ray results: Yes Chest X-Ray results: other (pulmonary edema) Visualized and Interpreted EKG results: Yes EKG Interpretation: Positive for: right bundle branch block Assessment & Plan Assessment: Acute hypoxemic respiratory failure 2/2 decompensated HF in setting of severe MR and torn papillary muscle. Discussed with Dr. Mendez. CXR with pulmonary edema (pers reviewed/interp), elevated BNP. -to rn cardiac cath for CLARITA, left heart cath and intubation due to inability to lie flat -s/p IV lasix, likely needs repeat Lasix dose today -follow i&o's, daily weights Valve disease - severe MR with pap muscle tear -CLARITA/cath as above, rule out vegetation -cards has discussed with CV surgery, Dr. Call will see pt -BCx's pending Leukocytosis - could be stress response, though endocarditis on differential. Afebrile, PCT neg. Lactate elevated, which could be from decreased perfusion in setting of above. -trend lactate and wbc's -f/u BCx's -await CLARITA results Full code Dispo - inpt, anticipate >48 hrs hospitalization for management of heart failure and severe valve disease
--- NOTE | 2018-10-21 10:37 | PDMN ---
Medical Necessity Medical necessity: Pt meets inpt criteria per MD order and MCG M-190, Heart Failure. 63 y/o admitted w/acute hypoxemic resp failure sec to decompensated heart failure in setting of severe MR and torn papillary muscle. CXR shows pulm edema, lactate elev at 3.0, WBC's 's 18.7, BNP 2160. SOB requiring 10 LO2 via oxymizer, IV Lasix, cardiology consult: CLARITA and cath today, cardiolgy surg consult. Anticiapte>2MN for ongoing eval/management of above.
--- NOTE | 2018-10-21 10:40 | ASMTCMCOM ---
CM Note CM Note Notes: Pts case discussed w/ MANA Jacques. Pt is being transferred to ICU. Pt will go to the [facility] lab[facility] w/ Dr. Mendez. Pt will eventually need open heart to fix her mitral valve. Pt will most likely be independent when medically stable. CM available for changes. Plan: Independent Date Signed: 10/21/2018 10:40 AM Electronically Signed By:MIAN Joya
[2018-10-21] MEDS ORDERED: CALCIUM CHLORIDE 1 GM/10 ML INJ ONE ×2 (10:42→10:45)
[2018-10-21] MEDS ORDERED: MILRINONE/DEXTROSE/100 ML BAG IV ONE (10:42)
[2018-10-21] MEDS ORDERED: PROTAMINE SULFATE 50 MG/5 ML VIAL IVP ONE (10:42)
[2018-10-21] MEDS ORDERED: niCARdipine/NACL/200 ML BAG IV ONE (10:43)
[2018-10-21] MEDS ORDERED: NA BICARBONATE 50 MEQ/50 ML VIAL ONE (10:43)
[2018-10-21] MEDS ORDERED: HEPARIN 10,000 UNIT/10 ML MDV (1,000 UNIT/ML) ONE ×3 (10:43→11:02)
[2018-10-21] MEDS ORDERED: DOPamine/DEXTROSE 400 MG/250 ML BAG IV ONE (10:43)
[2018-10-21] MEDS ORDERED: ADENOSINE 6 MG/2 ML VIAL ONE (10:44)
[2018-10-21] MEDS ORDERED: NITROGLYCERIN/D5W 50 MG/250 ML BOTTLE IV ONE (10:44)
[2018-10-21] MEDS ORDERED: AMIODARONE HCL 150 MG/3 ML VIAL ONE (10:44)
[2018-10-21] MEDS ORDERED: ceFAZolin 1 GM VIAL ONE (10:44)
[2018-10-21] MEDS ORDERED: SODIUM BICARBONATE 50 MEQ/50 ML SYR ONE (10:45)
[2018-10-21] MEDS ORDERED: ALBUMIN 5% 250 ML BOTTLE IV ONE (10:45)
[2018-10-21] MEDS ORDERED: LIDOCAINE 2% 100 MG/5 ML SYR ONE (10:45)
[2018-10-21] MEDS ORDERED: methylPREDNISolone SOD SUCC 1 GM/8 ML VIAL ONE (10:46)
[2018-10-21] MEDS ORDERED: MAGNESIUM SULFATE 1 GM/2 ML VIAL ONE (10:46)
[2018-10-21] MEDS ORDERED: CITRATE DEXTROSE SOLN 500 ML BAG ONE (10:46)
--- NOTE | 2018-10-21 11:14 | PDCARCONS ---
Cardiology Consult Reason for Consult: Acute dyspnea Chief Complaint: coughing and shortness of breath Requesting Physician: ER/Hospitalist team History of Present Illness: Patient is a 63 y/o female with history of HLP (on statins), but no known history of CAD, HTN, or DM, who presented to the ER at [facility] after progressive dyspnea with persistent cough. On Wednesday, the patient went skiing at [place] , and does not recall most of the day. She does not remember skiing or even driving home. Moderate, unusual dyspnea was remembered by the patient around the Wednesday ski day. A migraine was also noted (which was unusual for the patient). No issues with cough were noted at that time. Yesterday, the patient initially noted chest pains, which she attributed to reflux. She was evaluated in the ER at [facility], and after several hours, and no gross pathology, she was discharged to home. Around 20:00 last night, coughing started, and was rather significant. Overnight, little to no sleep was obtained given the inability to lie flat and the ongoing coughing. Shortness of breath also progressed for the patient, and at around 0500 this morning, the patient presented back to the ER. Pulse oximetry at presentation was noted to be 79% on room air. No chest pains were being noted this morning, but the cough was dramatic with possible blood tinging noted. Nausea was also noted this morning. Echocardiography was performed given the patient's cough and shortness of breath with severe (nearly wide open) mitral regurgitation noted. Hyperdynamic LVEF (>80%) with mild right atrial enlargement. Moderate WBC elevation was also noted with reports of blood cultures drawn in the ER. Cardiology became involved after reading the echocardiography. No fevers or chills. No lower extremity swelling has been noted. Migraine was noted yesterday and progressive, severe dyspnea. Both PND and orthopnea have been noted. Remainder of the 12 point review of systems was unremarkable. History Information - Allergies/Home Medication List Allergies/Adverse Reactions: No Known Allergies Allergy (Unverified 10/21/18 05:28) Home Medications: Aspirin [Aspirin 81mg (*)] 81 mg PO DAILY 10/21/18 [Last Taken 10/14/18] Cholecalciferol Vit D3 [Vitamin D3 (*)] 3,000 units PO DAILY 10/21/18 [Last Taken 10/18/18] Herbals/Supplements -Info Only 1 ea PO DAILY 10/21/18 [Last Taken 10/18/18] Simvastatin [Simvastatin] 10 mg PO HS 10/21/18 [Last Taken 10/18/18] I have personally reviewed and updated: family history, medical history, social history, surgical history Past Medical History: - Past Medical History hyperlipidemia - Surgical History Reports: no pertinent surgical hx - Family History Positive for: non-pertinent - Social History Smoking Status: Never smoked Alcohol Use: None Drug Use: Marijuana Cardiac History - Cardiac History Cardiac Risk Factors: lipidemia, age > 65 Timing/Duration: Hours Severity: severe Severity Scale: 10 Location: substernal Activities at Onset: activity Modifying Factors: improves with: rest Associated Symptoms: chest pain, cough, headaches, nausea/vomiting, shortness of breath Physical Exam Physical Exam: Temp Pulse Resp BP Pulse Ox 36.6 C 96 19 107/64 93 10/21/18 05:28 10/21/18 09:16 10/21/18 09:16 10/21/18 09:16 10/21/18 09:16 O2 (L/minute) 3 Constitutional: appears nourished, not in pain, uncomfortable Eyes: PERRL, EOMI Ears, Nose, Mouth, Throat: moist mucous membranes, hearing normal, ears appear normal Cardiovascular: systolic murmur, pulses symmetric bilaterally, tachycardia, No JVD, No edema Peripheral Pulses: 2+: carotid (R), carotid (L), femoral (R), femoral (L), dorsalis-pedis (R), dorsalis-pedis (L) Respiratory: reduced air movement, respiratory distress, dullness to percussion Gastrointestinal: normoactive bowel sounds Skin: warm, normal color Musculoskeletal: full muscle strength, no muscle tenderness, normal joint ROM Neurologic: AAOx3, sensation intact bilaterally, CN II-XII Intact Psychiatric: interacting appropriately, not anxious, not encephalopathic Lab and Imaging 10/21/18 05:45 10/21/18 05:45 WBC 18.76 10^3/uL (3.80-9.50) H 10/21/18 05:45 RBC 4.73 10^6/uL (4.18-5.33) 10/21/18 05:45 Hgb 14.7 g/dL (12.6-16.3) 10/21/18 05:45 Hct 44.5 % (38.0-47.0) 10/21/18 05:45 MCV 94.1 fL (81.5-99.8) 10/21/18 05:45 MCH 31.1 pg (27.9-34.1) 10/21/18 05:45 MCHC 33.0 g/dL (32.4-36.7) 10/21/18 05:45 RDW 12.7 % (11.5-15.2) 10/21/18 05:45 Plt Count 362 10^3/uL (150-400) 10/21/18 05:45 MPV 9.7 fL (8.7-11.7) 10/21/18 05:45 Neut % (Auto) 84.2 % (39.3-74.2) H 10/21/18 05:45 Lymph % (Auto) 8.4 % (15.0-45.0) L 10/21/18 05:45 [place] % (Auto) 6.7 % (4.5-13.0) 10/21/18 05:45 Eos % (Auto) 0.1 % (0.6-7.6) L 10/21/18 05:45 Baso % (Auto) 0.2 % (0.3-1.7) L 10/21/18 05:45 Nucleat RBC Rel Count 0.0 % (0.0-0.2) 10/21/18 05:45 Absolute Neuts (auto) 15.80 10^3/uL (1.70-6.50) H 10/21/18 05:45 Absolute Lymphs (auto) 1.58 10^3/uL (1.00-3.00) 10/21/18 05:45 Absolute Monos (auto) 1.26 10^3/uL (0.30-0.80) H 10/21/18 05:45 Absolute Eos (auto) 0.01 10^3/uL (0.03-0.40) L 10/21/18 05:45 Absolute Basos (auto) 0.03 10^3/uL (0.02-0.10) 10/21/18 05:45 Absolute Nucleated RBC 0.00 10^3/uL (0-0.01) 10/21/18 05:45 Immature Gran % 0.4 % (0.0-1.1) 10/21/18 05:45 Immature Gran # 0.08 10^3/uL (0.00-0.10) 10/21/18 05:45 PT 13.8 SEC (12.0-15.0) 10/21/18 05:45 INR 1.04 (0.83-1.16) 10/21/18 05:45 APTT 24.1 SEC (23.0-38.0) 10/21/18 05:45 D-Dimer 0.42 ug/mLFEU (0.00-0.50) 10/21/18 05:45 VBG Lactic Acid 3.0 mmol/L (0.7-2.1) H 10/21/18 05:45 Sodium 137 mEq/L (135-145) 10/21/18 05:45 Potassium 4.5 mEq/L (3.5-5.2) 10/21/18 05:45 Chloride 107 mEq/L (97-110) 10/21/18 05:45 Carbon Dioxide 19 mEq/l (22-31) L 10/21/18 05:45 Anion Gap 11 mEq/L (6-14) 10/21/18 05:45 BUN 24 mg/dL (7-23) H 10/21/18 05:45 Creatinine 0.9 mg/dL (0.6-1.0) 10/21/18 05:45 Estimated GFR > 60 10/21/18 05:45 Glucose 153 mg/dL (70-100) H 10/21/18 05:45 Calcium 9.2 mg/dL (8.5-10.4) 10/21/18 05:45 Magnesium 1.9 mg/dL (1.6-2.3) 10/21/18 05:45 Total Bilirubin 0.8 mg/dL (0.1-1.4) 10/21/18 05:45 Conjugated Bilirubin 0.1 mg/dL (0.0-0.5) 10/21/18 05:45 Unconjugated Bilirubin 0.7 mg/dL (0.0-1.1) 10/21/18 05:45 AST 22 IU/L (14-46) 10/21/18 05:45 ALT 16 IU/L (9-52) 10/21/18 05:45 Alkaline Phosphatase 55 IU/L (38-126) 10/21/18 05:45 Creatine Kinase 52 IU/L (0-156) 10/21/18 05:45 CK-MB (CK-2) Fraction 1.19 ng/mL (0.00-4.55) 10/21/18 05:45 POC Troponin I 0.02 ng/mL (0.00-0.08) 10/21/18 06:14 NT-Pro-B Natriuret Pep 2160 pg/mL (0-125) H 10/21/18 05:45 Total Protein 6.8 g/dL (6.3-8.2) 10/21/18 05:45 Albumin 4.1 g/dL (3.5-5.0) 10/21/18 05:45 Lipase 45 IU/L (23-300) 10/21/18 05:45 Procalcitonin < 0.02 ng/mL (0.02-0.10) L 10/21/18 05:45 Visualized and Interpreted Chest x-ray results: Yes Chest X-ray Interpretation: normal heart size, infiltrate, effusion Visualized and Interpreted EKG results: Yes EKG Interpretation: Positive for: other (Sinus tachycardia), right bundle branch block Telemetry: Sinus tachycardia Echocardiogram: hyperdynamic LVEF (>80%). Mild LAE. Torrential MR with probable cordae rupture. Thickened leaflets noted. Trileaflet aortic valve without appreciable insufficiency or sclerosis/stenosis. Grossly normal tricuspid valve with RVSP >70 mm Hg. A/P Assessment: 63 y/o female with HLP and acute mitral regurgitation secondary to cordae rupture (? etiology). Symptoms were noted yesterday (chest pain and migraine) and last night (cough, dyspnea, PND, and orthopnea). Echo with torrential mitral regurgitation and severe elevation to the right ventricular systolic pressure. Plan: (1) Intubation for respiratory protection and to allow cardiovascular procedures (2) CLARITA for better visualization of the mitral regurgitation (3) Angiography for assessment of coronary arteries (4) Placement of IABP for CV support given the acuity and severity of the new mitral regurgitation CT surgery is aware of the patient ICU pre surgery given (a) intubation and (b) IABP placement
--- NOTE | 2018-10-21 11:44 | PDDXCAT ---
Diagnostic Cath Note - . Date: 10/21/18 Meat Counter Clerk: Vanessa Indication: other (New, acute mitral regurgitation) - Procedure Access: right groin Procedure: left heart catheterization, coronary angiography - Materials Left Heart Cath size: 6F Left Heart Cath materials: JL4.0, JR4.0 - Findings-Left Heart Catheterization LM: Short, with bifurcation into the LAD and LCX. No luminal irregularities were noted. LAD: Medium diameter vessel with principal D1, and present D2 and D3. In the mid portion of the LAD, there is moderate bridging noted, but no CAD. Distal LAD was wrap around the apex. LCX: Medium diameter vessel with a principal OM1. Smallish OM2, 3, and 4 were noted. No luminal irregularities were noted. RCA: Dominant RCA with supply to the PDA. No luminal irregularities were noted. EDP: not performed (CLARITA pre cath) LVEF: Not performed with CLARITA pre cath Complications: none Estimated blood loss: <50ml Closure method: other (placement of IABP) Assessment: Patient is a 63 y/o female with history of HLP (on statins) and acute MR (ruptured papillary muscle/cordae) with hyperdynamic LVEF, and RVSP of >70 mm Hg. No coronary artery disease was noted. LVEF was not assessed by LV gram given CLARITA pre cath. Plan: IABP placement patient has been intubated for both respiratory protection as well as to allow procedures to be safely performed. ICU pending CT surgery Intervention: none Patient Problems: Problems Problem Status Onset Acute decompensated heart failure Acute Hypoxia Acute Pulmonary edema Acute
--- NOTE | 2018-10-21 11:54 | PDCARTEE ---
CAR CLARITA CAR CLARITA: Emergent CLARITA post TTE with new, severe mitral regurgitation PROCEDURE: CLARITA INDICATION: Acute MR with CHF PRELIMINARY REPORT: Consents for intubation (as per anesthesia), CLARITA, coronary angiography, and IABP placement were all obtained. The patient was taken to the laborer golf [facility], with anesthesia providing deep sedation and intubation. After this was performed, CLARITA probe was placed without difficulty, and standard views were obtained. (1) Hyperdynamic LVEF (>70%) (2) Mild LAE (3) Grossly normal RA (4) Severe, torrential MR with etiology appearing to be secondary to torn/ ruptured papillary muscle. (5) Trileaflet aortic valve (6) Moderate tricuspid regurgitation with RVSP of 70 mm Hg (7) Grossly normal pulmonic valve (8) Bubble contrast injection without right to left passage noted No complications were appreciated.
--- NOTE | 2018-10-21 11:58 | SUROPNOTE ---
[facility] Operative Report - Surgery PROCEDURE: IABP placement INDICATION: Acute mitral regurgitation with pulmonary congestion After completion of coronary angiography, the 6F sheath was removed, over wire, and 8F sheath from [employer] IABP kit was placed. The IABP was prepped and placed without difficulty. Under fluoroscopy, the tip of the IABP was just inferior to the transverse aorta. The device placed was a Fiberoptix IAB 30 cc 8F system. No complications. Patient was taken to the ICU stable and sedated, awaiting CT surgery for mitral valve repair/replacement.
[2018-10-21] MEDS: PROPOFOL/EMULSION 100 ML IV SCH ×2 (12:14→23:35)
--- NOTE | 2018-10-21 12:15 | PDANEPAE ---
ANE History of Present Illness Emergent CLARITA, Cardiac Cath. probable IABP ANE Past Medical History - Cardiovascular History Hx Hypertension: No Hx Arrhythmias: No Hx Chest Pain: No Hx Coronary Artery / Peripheral Vascular Disease: No Hx CHF / Valvular Disease: No Hx Palpitations: No Cardiovascular History Comment: Pt presents with severe SOB. Good breath sound. Loud mitral murmur. Likely severe MR - Pulmonary History Hx COPD: No Hx Asthma/Reactive Airway Disease: No Hx Recent Upper Respiratory Infection: No Hx Oxygen in Use at Home: No Hx Sleep Apnea: No - Endocrine History Hx Diabetes: No ANE Review of Systems Review of systems is: negative Review of Systems: - Exercise capacity METS (RN): 5 METS ANE Patient History - Allergies Allergies/Adverse Reactions: No Known Allergies Allergy (Unverified 10/21/18 05:28) - Home Medications Home Medications: Aspirin [Aspirin 81mg (*)] 81 mg PO DAILY 10/21/18 [Last Taken 10/14/18] Cholecalciferol Vit D3 [Vitamin D3 (*)] 3,000 units PO DAILY 10/21/18 [Last Taken 10/18/18] Herbals/Supplements -Info Only 1 ea PO DAILY 10/21/18 [Last Taken 10/18/18] Simvastatin [Simvastatin] 10 mg PO HS 10/21/18 [Last Taken 10/18/18] - Smoking Hx Smoking Status: Never smoked - Alcohol Use Alcohol Use: None ANE Labs/Vital Signs - Labs Result Diagrams: 10/21/18 05:45 10/21/18 05:45 - Vital Signs Blood Pressure: 123/70 Heart Rate: 93 Respiratory Rate: 30 O2 Sat (%): 98 Height: 165.1 cm Weight: 68.039 kg ANE Physical Exam - Airway Neck exam: FROM Mallampati Score: Class 1 Mouth exam: normal dental/mouth exam - Pulmonary Pulmonary: respiratory distress - Cardiovascular Cardiovascular: systolic murmur, diastolic murmur, tachycardia - ASA Status ASA Status: III, E ANE Anesthesia Plan Anesthesia Plan: general endotracheal anesthesia Urgent/Emergent Case: Hansel johnson completed preop but documented later for safe timely pt care
[2018-10-21] MEDS ORDERED: NALOXONE HCL 0.4 MG/ML INJ IVP PRN ×2 (12:19→14:42)
--- NOTE | 2018-10-21 12:22 | POSTANESTH ---
Post Anesthetic Evaluation Cardiovascular Status: Tx Hyper/Hypo-tension Respiratory Status: Tx Decrease in SpO2 Level of Consciousness/Mental Status: Unconscious Pain Control: Adequate, Prn Tx Ordered Nausea/Vomiting Control: Adequate, Prn Tx Ordered (Pt ICU vent, sedated. Plan Mitral valve repair today)
[2018-10-21] MEDS ORDERED: fentaNYL/NACL 100 ML IV SCH (12:30)
[2018-10-21] MEDS ORDERED: ACETAMINOPHEN 500 MG TAB PO PRN (14:42)
[2018-10-21] MEDS ORDERED: PROMETHAZINE HCL 25 MG/ML INJ IVP PRN (14:42)
[2018-10-21] MEDS ORDERED: DIAZEPAM 5 MG/ML 1 ML SYR IVP PRN (14:42)
[2018-10-21] MEDS ORDERED: LABETALOL HCL 20 MG/4 ML INJ IVP PRN (14:42)
[2018-10-21] MEDS ORDERED: HYDROCODONE/APAP 5/325 TAB PO PRN (14:42)
[2018-10-21] MEDS ORDERED: oxyCODONE IR 5 MG TAB PO PRN (14:42)
[2018-10-21] MEDS ORDERED: HYDROmorphONE/DILAUDID 2 MG/ML INJ IVP PRN (14:42)
[2018-10-21] MEDS ORDERED: fentaNYL 100 MCG/2 ML INJ IVP PRN (14:42)
[2018-10-22] MEDS ORDERED: CHLORHEXIDINE GLUC HIBICLENS 118 ML BTL TP ONE (04:48)
[2018-10-22 05:11] LABS: PLATELET COUNT 258 10^3/uL (150-400)
[2018-10-22] MEDS ORDERED: PHENYLEPHRINE HCL 50 MG in NS 250 ML IV ONE (06:00)
[2018-10-22] MEDS ORDERED: niCARdipine/NACL 200 ML IV ONE (06:00)
[2018-10-22] MEDS ORDERED: CITRATE DEXTROSE SOLN 500 ML BAG MISC ONE (06:00)
[2018-10-22] MEDS ORDERED: NOREPINEPHRINE BITARTRATE 16 MG in NS 250 ML IV ONE (06:00)
[2018-10-22] MEDS ORDERED: INSULIN REGULAR HUMAN 100 UNIT in NS 100 ML IV ONE (06:00)
[2018-10-22] MEDS ORDERED: AMINOCAPROIC ACID 5 GM/20 ML VIAL IV ONE (06:00)
[2018-10-22] MEDS ORDERED: MUPIROCIN 2% 22 GM OINT NS ONE (06:00)
[2018-10-22] MEDS ORDERED: CARDIOPLEGIC SOLUTION 1,052.8 ML PF ONE (06:00)
[2018-10-22] MEDS ORDERED: MANNITOL 25% 12.5 GM/50 ML VIAL IVP ONE (06:00)
[2018-10-22] MEDS ORDERED: ceFAZolin 2 GM/DEXTROSE 100 ML IV ONE (06:00)
[2018-10-22] MEDS: PRAVASTATIN SODIUM 20 MG TAB PO SCH ×2 (06:32→20:14)
--- NOTE | 2018-10-22 06:56 | GCON ---
DATE OF CONSULTATION: 10/21/2018 REFERRING PHYSICIAN: Buck Call DO Patient seen at the request of Dr. Mendez with the patient's permission. IMPRESSION: 1. 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 2. Hyperlipidemia. RECOMMENDATIONS: This patient required intubation in order to undergo diagnostic left heart cath for an inability to lie flat due to hypoxia. A balloon pump was placed because of the acute nature of h er MR, and diuretics were started. She has responded nicely to diuretics and able to wean down her F iO2 to 60% with 97% saturation and mild pulmonary edema on admitting history with marked negative flu id balance since admission. Patient remains hemodynamically stable and intubated. I discussed it wi th her since it was late in the evening and she is stable, we will proceed with mitral valve repair and possible replacement in the morning. I advised him that this is unlikely infectious and t hat if it were we would address that accordingly. I felt the white blood cell count was a reflection of the acute nature of her onset of symptoms and more of a leukemoid reaction. Risk is 5%. HISTORY OF PRESENT ILLNESS: This 63-year-old female was doing fine until several nights prior when s he began complaining of chest pain and shortness of breath. She was seen in the emergency room and d ischarged home and returned this morning with worsening chest pain and shortness of breath. She had been skiing at [place] on Wednesday and had no recall of any anything about that day including how she got home. She thought she may have been short of breath during the day. On admission to the ER, karlee hickey was found to have a murmur and echo confirmed severe mitral insufficiency with a ruptured P2 cord a nd myxomatous-appearing valve with an enlarged left atrium. Diagnostic left heart cath was without s ignificant obstruction. Balloon pump was placed. She was referred to ICU. MEDICAL HISTORY: As stated. ALLERGIES: Denied. SOCIAL HISTORY: She smokes marijuana at night. MEDICATIONS: Takes aspirin, cholecalciferol, vitamin D3, herbal supplements, and simvastatin. PAST SURGICAL HISTORY: She has had previous orthopedic surgeries. Otherwise, she is very healthy. FAMILY HISTORY: Noncontributory. No history of mitral valve disease. She does not smoke. 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 REVIEW OF SYSTEMS: Unobtainable due to her being intubated and unresponsive. I obtained the history from her and the chart. PHYSICAL EXAMINATION: GENERAL: This is a well-developed, middle-aged female, lying supine in bed, i ntubated, nodding appropriately with a balloon pump. NECK: No auscultated bruits. CARDIOVASCULAR: Heart rate is regular with a murmur of mitral insufficiency. LUNGS: Diminished. ABDOMEN: Scaphoi d, nontender. Bowel sounds are active. RECTAL AND GENITAL: Exams were deferred. NEUROLOGIC: She moves all extremities and follows commands. DIAGNOSTIC STUDIES: Please see echo and cath reports. /[id number]/MODL
[2018-10-22] MEDS ORDERED: SODIUM BICARBONATE 50 MEQ/50 ML SYR ONE (07:00)
[2018-10-22] MEDS ORDERED: PROTAMINE SULFATE 50 MG/5 ML VIAL IVP ONE (07:00)
[2018-10-22] MEDS ORDERED: CALCIUM CHLORIDE 1 GM/10 ML INJ ONE (07:00)
[2018-10-22] MEDS ORDERED: ALBUMIN 5% 250 ML BOTTLE IV ONE ×2 (07:00→17:31)
[2018-10-22] MEDS ORDERED: HEPARIN 10,000 UNIT/10 ML MDV (1,000 UNIT/ML) ONE (07:01)
[2018-10-22] MEDS ORDERED: LIDOCAINE 2% 100 MG/5 ML SYR ONE (07:01)
[2018-10-22] MEDS ORDERED: MILRINONE/DEXTROSE/100 ML BAG IV ONE (07:01)
[2018-10-22] MEDS ORDERED: NA BICARBONATE 50 MEQ/50 ML VIAL ONE (07:01)
[2018-10-22] MEDS ORDERED: ADENOSINE 6 MG/2 ML VIAL ONE (07:02)
[2018-10-22] MEDS ORDERED: CITRATE DEXTROSE SOLN 500 ML BAG ONE (07:02)
[2018-10-22] MEDS ORDERED: niCARdipine/NACL/200 ML BAG IV ONE ×2 (07:02→12:39)
[2018-10-22] MEDS ORDERED: DOPamine/DEXTROSE 400 MG/250 ML BAG IV ONE (07:02)
[2018-10-22] MEDS ORDERED: AMIODARONE HCL 150 MG/3 ML VIAL ONE (07:02)
[2018-10-22] MEDS ORDERED: MAGNESIUM SULFATE 1 GM/2 ML VIAL ONE (07:02)
[2018-10-22] MEDS ORDERED: methylPREDNISolone SOD SUCC 1 GM/8 ML VIAL ONE (07:02)
[2018-10-22] MEDS ORDERED: ceFAZolin 1 GM VIAL ONE (07:02)
[2018-10-22] MEDS ORDERED: NITROGLYCERIN/D5W 50 MG/250 ML BOTTLE IV ONE (07:03)
[2018-10-22] MEDS ORDERED: EPINEPHrine 1 MG/ML INJ ONE (07:23)
[2018-10-22] MEDS ORDERED: PHENYLEPHRINE 10 MG/ML SDV ONE (07:23)
[2018-10-22] MEDS ORDERED: ROCURONIUM 100 MG/10 ML VIAL ONE (07:23)
[2018-10-22] MEDS ORDERED: MINERAL OIL 10 ML VIAL ONE (07:24)
[2018-10-22] MEDS ORDERED: MIDAZOLAM 2 MG/2 ML VIAL ONE ×2 (07:31→09:40)
[2018-10-22] MEDS ORDERED: fentaNYL 250 MCG/5 ML INJ ONE ×2 (07:31)
--- NOTE | 2018-10-22 07:52 | PDANEPAE ---
ANE History of Present Illness mv repair ANE Past Medical History - Cardiovascular History Hx Hypertension: No Hx Arrhythmias: No Hx Chest Pain: No Hx Coronary Artery / Peripheral Vascular Disease: No Hx CHF / Valvular Disease: Yes Hx Palpitations: No Cardiovascular History Comment: sev MR - Pulmonary History Hx COPD: No Hx Asthma/Reactive Airway Disease: No Hx Recent Upper Respiratory Infection: No Hx Oxygen in Use at Home: No Hx Sleep Apnea: No Sleep Apnea Screening Result - Last Documented: Negative - Neurologic History Hx Cerebrovascular Accident: No Hx Seizures: No Hx Dementia: No - Endocrine History Hx Diabetes: No Hypothyroid: No Hyperthyroid: No Obesity: no - Renal History Hx Renal Disorders: No - Liver History Hx Hepatic Disorders: No - Neurological & Psychiatric Hx Hx Neurological and Psychiatric Disorders: No ANE Review of Systems Review of Systems: - Exercise capacity Exercise capacity: >=4 METS METS (RN): 5 METS ANE Patient History - Allergies Allergies/Adverse Reactions: No Known Allergies Allergy (Unverified 10/21/18 05:28) - Home Medications Home medications: home medication list seen and reviewed Home Medications: Aspirin [Aspirin 81mg (*)] 81 mg PO DAILY 10/21/18 [Last Taken 10/14/18] Cholecalciferol Vit D3 [Vitamin D3 (*)] 3,000 units PO DAILY 10/21/18 [Last Taken 10/18/18] Herbals/Supplements -Info Only 1 ea PO DAILY 10/21/18 [Last Taken 10/18/18] Simvastatin [Simvastatin] 10 mg PO HS 10/21/18 [Last Taken 10/18/18] - NPO status NPO Status: no food or drink >8 hours - Anes Hx Anes Hx: no prior problems Hx Anesthesia Complications (with details): low SpO2 following previous procedures - Smoking Hx Smoking Status: Never smoked - Alcohol Use Alcohol Use: None ANE Labs/Vital Signs - Labs Result Diagrams: 10/22/18 05:00 10/22/18 05:00 - Vital Signs Blood Pressure: 109/47 Heart Rate: 82 Respiratory Rate: 23 O2 Sat (%): 96 Height: 165.1 cm Weight: 71.8 kg ANE Physical Exam - Airway Mouth exam: ETT in situ - Pulmonary Pulmonary: no rales or rhonchi - Cardiovascular Cardiovascular: regular rate and rhythym - ASA Status ASA Status: III ANE Anesthesia Plan Anesthesia Plan: general endotracheal anesthesia Lines/Monitors: arterial line, central line, CLARITA
[2018-10-22] MEDS: ASPIRIN 81 MG CHEWABLE TAB PO SCH (10:00)
[2018-10-22] MEDS ORDERED: DEXMEDETOMIDINE HCL 400 MCG in NS 100 ML IV SCH (11:30)
[2018-10-22] MEDS ORDERED: SUGAMMADEX SODIUM 200 MG/2 ML VIAL IVP ONE (11:43)
--- NOTE | 2018-10-22 12:17 | POSTANESTH ---
Post Anesthetic Evaluation Cardiovascular Status: Normal, Stable Respiratory Status: Other, See Comment (stable on vent) Level of Consciousness/Mental Status: Mildly Sleepy, Arousable Pain Control: Adequate, Prn Tx Ordered Nausea/Vomiting Control: Adequate, Prn Tx Ordered Complications Possibly Related to Anesthesia: None Noted
[2018-10-22] MEDS ORDERED: NALOXONE HCL 0.4 MG/ML INJ IVP PRN (12:18)
[2018-10-22] MEDS ORDERED: D50W 25 GM/50 ML SYR IVP PRN (12:23)
[2018-10-22] MEDS ORDERED: INSULIN REGULAR HUMAN 100 UNIT in NS 100 ML IV SCH (12:30)
[2018-10-22] MEDS ORDERED: BISACODYL 10 MG SUPP PR PRN (12:41)
[2018-10-22] MEDS ORDERED: ONDANSETRON DISINTEGRATING 4 MG TAB PO PRN (12:41)
[2018-10-22] MEDS ORDERED: LACTULOSE 20 GM/30 ML UDCUP PO PRN (12:41)
[2018-10-22] MEDS ORDERED: POLYETHYLENE GLYCOL 3350 17 GM PKT PO PRN (12:41)
[2018-10-22] MEDS ORDERED: MEPERIDINE 25 MG/0.5 ML AMP IVP PRN (12:41)
[2018-10-22] MEDS ORDERED: ONDANSETRON 4 MG/2 ML VIAL IVP PRN (12:41)
[2018-10-22] MEDS ORDERED: CEPACOL LOZENGE PO PRN (12:41)
[2018-10-22] MEDS ORDERED: SODIUM CL NASAL 45 ML BTL EACHNARE PRN (12:41)
[2018-10-22] MEDS ORDERED: POTASSIUM Cl (KCl) 50 ML IV PRN (12:41)
[2018-10-22] MEDS ORDERED: PANTOPRAZOLE SODIUM 40 MG VIAL IVP ONE (12:41)
[2018-10-22] MEDS ORDERED: METOCLOPRAMIDE 10 MG/2 ML VIAL IVP PRN (12:41)
[2018-10-22] MEDS ORDERED: MAGNESIUM HYDROXIDE 30 ML UDCUP PO PRN (12:41)
[2018-10-22] MEDS ORDERED: fentaNYL 100 MCG/2 ML INJ IVP PRN (12:41)
[2018-10-22] MEDS ORDERED: NS 1,000 ML IV SCH (12:45)
--- NOTE | 2018-10-22 12:49 | HOSPPROG ---
Hospitalist Progress Note Assessment/Plan: # severe MR d/t ruptured papillary muscle - s/p MVR by Dr Call today - volume overload has improved - remains on IABP # acute resp failure - remains intubated - precedex currently for sedation Subjective: s/p MVR today by Dr Call; remains intubated Objective: Vital Signs Temp Pulse Resp BP Pulse Ox 36.4 C 74 18 122/56 H 90 L 10/22/18 12:05 10/22/18 12:31 10/22/18 12:31 10/22/18 12:15 10/22/18 12:31 Laboratory Results 10/22/18 05:00 10/22/18 05:00 10/21/18 10/22/18 10/23/18 05:59 05:59 05:59 Intake Total 509 Output Total 1450 Balance -941 PT 13.8 SEC (12.0-15.0) 10/21/18 05:45 INR 1.04 (0.83-1.16) 10/21/18 05:45 chart reviewed CXR personally reviewed ECG reviewed - Physical Exam Constitutional: other (intubated, sedated) Cardiovascular: regular rate and rhythym, no murmur, rub, or gallop, other ( midline sternotomy; two chest tubes) Gastrointestinal: soft, non-tender abdomen, no palpable masses, No guarding, No rebound ICD10 Worksheet Patient Problems: Problems Problem Status Onset Chest pain Acute Migraine Acute Acute decompensated heart failure Acute Hypoxia Acute Pulmonary edema Acute
[2018-10-22] MEDS ORDERED: niCARdipine/NACL 200 ML IV SCH (13:00)
--- NOTE | 2018-10-22 13:00 | CPEKG ---
Test Reason : OPEN Blood Pressure : / mmHG Vent. Rate : 077 BPM Atrial Rate : 077 BPM P-R Int : 171 ms QRS Dur : 136 ms QT Int : 455 ms P-R-T Axes : 084 051 003 degrees QTc Int : 516 ms Sinus rhythm IVCD, consider atypical RBBB Confirmed by Delio Gutierrez ([id number]) on 10/22/2018 12:59:54 PM Referred By: Confirmed By:Delio Gutierrez
[2018-10-22] MEDS: ALBUMIN 5% 250 ML IV PRN ×2 (13:35→15:45)
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
[2018-10-22] MEDS ORDERED: NOREPINEPHRINE BITARTRATE 16 MG in NS 250 ML IV SCH (16:30)
[2018-10-22] MEDS ORDERED: ALBUMIN 5% 250 ML IV ONE (18:00)
--- NOTE | 2018-10-22 19:40 | GOP ---
DATE OF OPERATION: 10/22/2018 SURGEON: Buck Call DO JAVA INTEGRATION DEVELOPER: Mariely PATRICK. ANESTHESIOLOGIST: Abiodun Solis MD. PREOPERATIVE DIAGNOSIS: Acute mitral insufficiency secondary to ruptured P2 on a Jarvis valve. POSTOPERATIVE DIAGNOSIS: Acute mitral insufficiency secondary to ruptured P2 on a Jarvis valve. PROCEDURE PERFORMED: 1. Complex mitral valve repair with triangular resection of P2, chordal reconstruction to P2, and cl osure of cleft between P2 and P3. We also performed a #38 mm Physio II annuloplasty ring. 2. 40 mm AtriClip to the left atrial appendage. FINDINGS: Patient presented with pulmonary edema, was intubated. A balloon pump was placed. Diagno stic cath revealed normal coronary arteries. Echo revealed severe mitral insufficiency with moderate left atrial enlargement and evidence of a ruptured chordae to P2. She was medically stabilized over night and diuresed, improving her oxygenation, and was brought the subsequent morning to the OR. She was prepped and draped in sterile classical manner. Time-out was confirmed. Sternotomy was perf ormed. She was cannulated in standard fashion with bicaval cannulas. Bypass was begun and cardiople gic arrest was obtained with antegrade cardioplegia, topical hypothermia, and systemic cooling. Init ially a 40 mm clip was placed across the left atrial appendage flush with the pulmonary vein. We then proceeded with opening the left atrium through the right superior pulmonary vein. A retracto r was placed. Inspecting the valve revealed a large Jarvis valve with a fair amount of MAC almost ci rcumferentially but still somewhat pliable. There was evidence of complete rupture of P2 with fresh chordae rupture. We then placed circumferential 2-0 Tycrons in the ring to better expose it. We too k a triangular resection down to the anulus of the mid portion of P2. There was a large cleft betwee n P2 and P3, which was closed with interrupted 4-0 Prolene sutures. Distending the ventricle reveale d no regurgitation. We placed the largest ring available, which was a 38 mm Physio II, which secured the repair. The left atrium was closed in a standard fashion. Cross-clamp was removed with suction on the ascending aortic vent in Trendelenburg and through the LV apex. When there was no further ai r, she was easily weaned from bypass. Echo revealed good coaptation without evidence of ROSSANA and no e vidence of regurgitation. Biventricular function was well preserved. The heparin was reversed with protamine. The cannula was then removed and oversewn. Two ventricular pacing wires, one right pleur al and one mediastinal drain were placed. The thymic fat and pericardium were closed. Chest was abilio sed in standard fashion. Patient was returned to ICU in stable condition. DESCRIPTION OF PROCEDURE: /[id number]/MODL
[2018-10-22] MEDS: SENNOSIDES/DOCUSATE SODIUM TAB PO SCH (20:14)
[2018-10-22] MEDS: MUPIROCIN 2% 22 GM OINT NS SCH (22:26)
[2018-10-22] MEDS ORDERED: KETOROLAC 30 MG/1 ML SDV ONE (22:46)
[2018-10-22] MEDS: KETOROLAC 30 MG/1 ML SDV IVP SCH (22:51)
[2018-10-23 05:07] LABS: PLATELET COUNT 146 10^3/uL (150-400)
[2018-10-23] MEDS: KETOROLAC 30 MG/1 ML SDV IVP SCH ×4 (05:14→23:55)
[2018-10-23] MEDS: HEPARIN 5,000 UNIT/0.5 ML INJ SC SCH ×3 (05:21→22:54)
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
[2018-10-23] MEDS: HYDROCODONE/APAP 5/325 TAB PO PRN ×4 (09:27→19:45)
[2018-10-23] MEDS: ASPIRIN 81 MG CHEWABLE TAB PO SCH (09:29)
[2018-10-23] MEDS: SENNOSIDES/DOCUSATE SODIUM TAB PO SCH ×2 (09:31→22:54)
[2018-10-23] MEDS: MUPIROCIN 2% 22 GM OINT NS SCH ×2 (09:32→22:55)
[2018-10-23] MEDS ORDERED: FUROSEMIDE 40 MG/4 ML VIAL IVP ONE (10:07)
[2018-10-23] MEDS ORDERED: PNEUMOC 13-VAL CONJ-DIP CRM/PF 0.5 ML SYR (PREVNAR 13) IM ONE ×2 (11:16→13:27)
[2018-10-23] MEDS: PANTOPRAZOLE SODIUM 40 MG TAB PO SCH (14:25)
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
[2018-10-23] MEDS: PRAVASTATIN SODIUM 20 MG TAB PO SCH (22:54)
[2018-10-24] MEDS: HYDROCODONE/APAP 5/325 TAB PO PRN ×5 (03:39→23:15)
[2018-10-24 05:19] LABS: INR 1.38 (0.83-1.16); PROTIME(PATIENT) 17.1 SEC (12.0-15.0)
[2018-10-24] MEDS: HEPARIN 5,000 UNIT/0.5 ML INJ SC SCH ×3 (05:44→23:15)
[2018-10-24] MEDS: KETOROLAC 30 MG/1 ML SDV IVP SCH ×4 (05:44→23:15)
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
[2018-10-24] MEDS ORDERED: CYCLOBENZAPRINE 10 MG TAB PO PRN (07:15)
[2018-10-24] MEDS: SENNOSIDES/DOCUSATE SODIUM TAB PO SCH ×2 (08:12→23:14)
[2018-10-24] MEDS: PANTOPRAZOLE SODIUM 40 MG TAB PO SCH (08:12)
[2018-10-24] MEDS: ASPIRIN 81 MG CHEWABLE TAB PO SCH (08:13)
[2018-10-24] MEDS: MUPIROCIN 2% 22 GM OINT NS SCH (08:15)
[2018-10-24] MEDS ORDERED: FUROSEMIDE 40 MG/4 ML VIAL IVP ONE (09:10)
[2018-10-24] MEDS ORDERED: traMADol 50 MG TAB PO PRN (09:22)
--- NOTE | 2018-10-24 11:58 | ASMTCMCOM ---
CM Note CM Note Notes: Patient lives with her . OT recommending HM; PT recommending HC at this time. Patient has [facility] Ins. Lft mess with [facility] to see if they contract with [facility]. Date Signed: 10/24/2018 11:57 AM Electronically Signed By:Kori Kay LCSW
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
[2018-10-24] MEDS ORDERED: WARFARIN SODIUM 2.5 MG TAB PO SCH (16:00)
[2018-10-24] MEDS: PRAVASTATIN SODIUM 20 MG TAB PO SCH (23:14)
[2018-10-25] MEDS: HYDROCODONE/APAP 5/325 TAB PO PRN ×3 (05:04→21:58)
[2018-10-25] MEDS: KETOROLAC 30 MG/1 ML SDV IVP SCH ×3 (05:04→17:17)
[2018-10-25 05:25] LABS: PLATELET COUNT 196 10^3/uL (150-400)
[2018-10-25 05:35] LABS: INR 1.2 (0.83-1.16); PROTIME(PATIENT) 15.4 SEC (12.0-15.0)
[2018-10-25] MEDS: HEPARIN 5,000 UNIT/0.5 ML INJ SC SCH ×3 (05:56→21:59)
[2018-10-25] MEDS: SENNOSIDES/DOCUSATE SODIUM TAB PO SCH ×2 (08:56→21:58)
[2018-10-25] MEDS: PANTOPRAZOLE SODIUM 40 MG TAB PO SCH (08:56)
[2018-10-25] MEDS: ASPIRIN 81 MG CHEWABLE TAB PO SCH (08:57)
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
[2018-10-25] MEDS: FUROSEMIDE 40 MG/4 ML VIAL IVP SCH (09:26)
[2018-10-25] MEDS ORDERED: POTASSIUM CL 20 MEQ TAB PO SCH (09:30)
[2018-10-25] MEDS: POTASSIUM CL 20 MEQ TAB PO SCH (09:39)
[2018-10-25] MEDS ORDERED: WARFARIN SODIUM 5 MG TAB PO ONE (16:00)
[2018-10-25] MEDS: PRAVASTATIN SODIUM 20 MG TAB PO SCH (21:58)
[2018-10-26] MEDS: KETOROLAC 30 MG/1 ML SDV IVP SCH ×2 (01:12→06:44)
[2018-10-26] MEDS: HYDROCODONE/APAP 5/325 TAB PO PRN ×4 (05:02→19:50)
[2018-10-26 06:21] LABS: INR 1.78 (0.83-1.16); PROTIME(PATIENT) 20.8 SEC (12.0-15.0)
[2018-10-26] MEDS: HEPARIN 5,000 UNIT/0.5 ML INJ SC SCH (06:43)
--- NOTE | 2018-10-26 07:59 | SOAPPROG ---
SOAP Progress Note Assessment/Plan: Assessment: POD#4 Urgent complex mitral valve repair w #38 Physio ring, AtriClip exclusion of UZMA Acute severe MR d/t P2 chordal rupture - Assoc with acute pulmonary edema, necessitating intubation and hemodynamic support with IABP. Taken urgently to OR where valve successfully repaired. IABP removed POD#1. No prolonged pressor support. Active diuresis of modest fluid overload in progress. Tubes out. Antithrombotic prophylaxis w Coumadin, target INR 2-3, duration 3 months. AF prophylaxis w BB as allowed by BP Acute expected blood loss anemia - Stable. No transfusions required. VTE prophylaxis w SCDs, coumadin and SQ hep until INR > 1.7. Plan: Clip TCPWs. Stop SQ hep and decr coumadin to 2.5 mg today. Transition to oral diuresis tomorrow. Transition from toradol to ibuprofen. Consider start low dose metoprolol tonight. Baseline postop echo today. Cont inc activity. Wean O2. Dispo - Anticipate home without services tomorrow. 10/26/18 07:56 Subjective: Feels well. Improving strength and stamina. Awaiting BM. Would like to restart vits/suppl. Comfortable going home tomorrow. Objective: Vital Signs Temp Pulse Resp BP Pulse Ox 36.8 C 90 18 104/53 L 92 10/26/18 07:20 10/26/18 07:20 10/26/18 07:20 10/26/18 07:20 10/26/18 07:20 Laboratory Results 10/25/18 04:55 10/25/18 04:55 10/25/18 10/26/18 10/27/18 05:59 05:59 05:59 Intake Total 950 1340 400 Output Total 1440 1475 300 Balance -490 -135 100 PT 20.8 SEC (12.0-15.0) H 10/26/18 05:40 INR 1.78 (0.83-1.16) H 10/26/18 05:40 Uptrending HR. Holding SBPs > 100. Min suppl O2 req. Diuresing well. Approaching baseline wt. INR on the rise. Physical Exam - Physical Exam General Appearance: alert, no apparent distress Respiratory: lungs clear Cardiac/Chest: regular rate, rhythm, other (Sternotomy CDI. V wires clipped.) Abdomen: non-tender, soft Skin: warm/dry Extremities: other (no visible edema) ICD10 Worksheet Patient Problems: Problems Problem Status Onset Acute decompensated heart failure Acute Hypoxia Acute Pulmonary edema Acute Chest pain Acute Migraine Acute
[2018-10-26] MEDS: FUROSEMIDE 40 MG/4 ML VIAL IVP SCH (08:13)
[2018-10-26] MEDS: SENNOSIDES/DOCUSATE SODIUM TAB PO SCH (08:13)
[2018-10-26] MEDS: ASPIRIN 81 MG CHEWABLE TAB PO SCH (08:13)
[2018-10-26] MEDS: POTASSIUM CL 20 MEQ TAB PO SCH (08:13)
[2018-10-26] MEDS: PANTOPRAZOLE SODIUM 40 MG TAB PO SCH (08:13)
[2018-10-26] MEDS ORDERED: POTASSIUM CL 20 MEQ PKT PO SCH (09:00)
[2018-10-26] MEDS: IBUPROFEN 600 MG TAB PO SCH ×3 (11:55→21:57)
[2018-10-26] MEDS ORDERED: SENNOSIDES/DOCUSATE SODIUM TAB PO PRN (13:27)
--- NOTE | 2018-10-26 13:52 | ECHO ---
[email or web address] [address] [address] Main: [phone] Fax: Transthoracic Echocardiogram Name: EILEEN KEITH MR#: [id number] Study Date: 10/26/2018 Study Time: 10:38 AM Date of : 1955 Age: 63 year(s) Height: 165.1 cm (65 in.) Weight: 71.21 kg (157 lb.) BSA: 1.78 m2 Gender: Female Examination: Echo Indication: s/p urgent MV Repair and acute papillary muscle rupture/acute CHF Image Quality: Adequate Contrast: Requested by: Daniel Lopez BP: 104 mmHg/53 mmHg Heart Rate: Rhythm: Indication: s/p urgent MV Repair and acute papillary muscle rupture/acute CHF Procedure Staff Geoscience Specialist: Modesta Varela RDCS Reading Physician: Ramirez Hernandez MD Requesting Provider: Conclusions: Normal size left ventricle. Mild concentric LV hypertrophy. Normal global systolic LV function. EF is 59 %. Normal size right ventricle. The left atirum is borderline dilated. The right atrium is normal in size. There is moderate thickening of the mitral valve leaflets. Mean mitral valve gradient 5mmHg. There is no mitral valve regurgitation. Mitral valve repair with annuloplasty ring. #38. The pulmonary artery pressure is normal. Right ventricular systolic pressure measures 29mmHg. Small pericardial effusion. No echocardiographic evidence of hemodynamic compromise. Left side pleural effusion. Measurements: Chambers Valvular Assessment AV/MV Valvular Assessment TV/PV Normal Normal Normal Name Value Range Name Value Range Name Value Range Ao Josefa (2D): 2.5 cm (1.4 cm-2.6 AV Vmax: 1.39 m/s (1 m/s-1.7 TR Vmax: 2.46 mm/s ( - ) cm) m/s) TR PGmax: 24 mmHg ( - ) IVSd (2D): 1.2 cm (0.6 cm-1.1 AV maxP mmHg ( - ) syst. PAP: 29 mmHg ( - ) cm) AV meanP mmHg ( - ) PV Vmax: 0.72 m/s (0.6 m/s-0.9 LVDd (2D): 3.6 cm (3.9 cm-5.3 YIN (VTI): 1.7 cm ( - ) m/s) cm) MV E Vmax: 1.44 m/s ( - ) PV PGmax: 2 mmHg ( - ) MV A Vmax: 0.85 m/s ( - ) Patient: EIELEN KEITH Study Date: 10/26/2018 Page 1 of 2 10:38 AM LVDs (2D): 2.4 cm (2.1 cm-4 MV E/A: 1.69 ( - ) cm) MV meanP mmHg ( - ) LVPWd (2D): 1.2 cm ( - ) MV PHT: 0.087 s ( - ) LVOTd 1.8 cm 1.8 cm mm MVA (Vmax): 1.0 m/s ( - ) LVEF (MOD4): 59 % (>=55 %) MVA (PHT): 2.5 s ( - ) RVDd(2D): 2.9 cm (1.9 cm-3.8 cmmm) Continued Measurements: Chambers Valvular Assessment AV/MV Valvular Assessment TV/PV Name Value Name Value Name Value LADs: 3.6 cm MV DecTime: 285 m/s CVP (est.): 5 mmHg LADs Lon.1 cm MV E' Septal: 0.07 m/s LA Area: 21.4 cm2 MV E/E' Septal: 20.80 LA Volume: 61 ml MV E/E' Lateral: 20.80 LA Volume Index: 34.3 ml/m2 MV VTI: 48.50 cm RA Area: 14.4 cm2 Additional Vessels Name Value Ao Ascendin.8 cm Findings: Left Ventricle: Normal size left ventricle. Mild concentric LV hypertrophy. Normal global systolic LV function. EF is 59 %. No regional wall motion abnormality. Diastolic dysfunction is present. . Right Ventricle: Normal size right ventricle. Normal RV function. Left Atrium: The left atirum is borderline dilated. Right Atrium: The right atrium is normal in size. Mitral Valve: There is moderate thickening of the mitral valve leaflets. Mean mitral valve gradient 5mmHg. There is no mitral valve regurgitation. Mitral valve repair with annuloplasty ring. #38. Aortic Valve: The aortic valve is tri-leaflet. There is no significant aortic valve regurgitation. No aortic valve stenosis is present. Tricuspid Valve: The tricuspid valve is normal in appearance and function. Mild tricuspid regurgitation is present. The pulmonary artery pressure is normal. Right ventricular systolic pressure measures 29mmHg. Pulmonic Valve: The pulmonic valve is normal in appearance and function. Trivial pulmonic valve regurgitation. Aorta: The aorta is normal. Normal size aortic root measuring 2.5 cm. Normal size ascending aorta measuring 2.8 cm. IVC: The IVC is normal sized. Pericardium: Small pericardial effusion. No echocardiographic evidence of hemodynamic compromise. Left side pleural effusion. (No Signature Object) Patient: EILEEN KEITH Study Date: 10/26/2018 Page 2 of 2 10:38 AM [id number]
[2018-10-26] MEDS ORDERED: CANN-EASE 2 GM TUBE TP PRN (14:40)
--- NOTE | 2018-10-26 15:50 | ASMTCMCOM ---
CM Note CM Note Notes: Spoke with pt's RN and PT. Pt had dramatic improvement in mobility today and PT is now recommending to discharge iindependently. [facility] notified. No CM needs noted at this time. CM to follow. D/C Plan: Independent Date Signed: 10/26/2018 03:48 PM Electronically Signed By:Tanja Tavares
[2018-10-26] MEDS ORDERED: WARFARIN SODIUM 2.5 MG TAB PO ONE (16:00)
[2018-10-26] MEDS: METOPROLOL TARTRATE 25 MG TAB PO SCH (21:55)
[2018-10-26] MEDS: PRAVASTATIN SODIUM 20 MG TAB PO SCH (21:55)
[2018-10-27] MEDS: HYDROCODONE/APAP 5/325 TAB PO PRN (02:33)
[2018-10-27] MEDS: IBUPROFEN 600 MG TAB PO SCH ×2 (05:41→11:17)
[2018-10-27 06:53] LABS: INR 2.24 (0.83-1.16); PROTIME(PATIENT) 24.8 SEC (12.0-15.0)
--- NOTE | 2018-10-27 07:41 | SOAPPROG ---
SOAP Progress Note Assessment/Plan: POD#4: Urgent complex mitral valve repair w #38 Physio ring, AtriClip exclusion of UZMA Acute severe MR d/t P2 chordal rupture - Assoc with acute pulmonary edema, necessitating intubation and hemodynamic support with IABP. Taken urgently to OR where valve successfully repaired. IABP removed POD#1. No prolonged pressor support. Active diuresis of modest fluid overload in progress. Tubes out. Antithrombotic prophylaxis w Coumadin, target INR 2-3, duration 3 months. AF prophylaxis w BB as allowed by BP Acute expected blood loss anemia - Stable. No transfusions required. VTE prophylaxis w SCDs, Coumadin. Disposition - Home today without services. Subjective: Feels nervous being discharged but would like to go home. Pain well-controlled. Denies SOB. Objective: Vital Signs Temp Pulse Resp BP Pulse Ox 36.9 C 76 14 106/60 92 10/27/18 07:26 10/27/18 07:26 10/27/18 07:26 10/27/18 07:26 10/27/18 07:26 Laboratory Results 10/25/18 04:55 10/25/18 04:55 10/26/18 10/27/1818 05:59 05:59 05:59 Intake Total 1340 1430 Output Total 1475 800 Balance -135 630 PT 24.8 SEC (12.0-15.0) H 10/27/18 06:35 INR 2.24 (0.83-1.16) H 10/27/18 06:35 Physical Exam - Physical Exam General Appearance: WD/WN, alert, no apparent distress EENT: No scleral icterus (R), No scleral icterus (L) Neck: normal inspection Respiratory: No respiratory distress Cardiac/Chest: regular rate, rhythm Abdomen: non-tender, soft, No distended Skin: normal color, warm/dry Extremities: No pedal edema Neuro/Psych: no motor/sensory deficits, alert, normal mood/affect, oriented x 3 ICD10 Worksheet Patient Problems: Problems Problem Status Onset Acute decompensated heart failure Acute Hypoxia Acute Pulmonary edema Acute Chest pain Acute Migraine Acute
[2018-10-27] MEDS: ASPIRIN 81 MG CHEWABLE TAB PO SCH (08:16)
[2018-10-27] MEDS: METOPROLOL TARTRATE 25 MG TAB PO SCH (08:16)
[2018-10-27] MEDS: PANTOPRAZOLE SODIUM 40 MG TAB PO SCH (08:16)
[2018-10-27] MEDS ORDERED: POTASSIUM CL 10 MEQ TAB PO SCH (09:00)
[2018-10-27] MEDS ORDERED: CHOLECALCIFEROL VIT D3 1,000 UNITS TAB PO SCH (09:00)
[2018-10-27] MEDS ORDERED: FUROSEMIDE 20 MG TAB PO SCH (09:00)
[2018-10-27 11:25] VITALS: BP 101/58
--- NOTE | 2018-10-27 11:43 | PDDCSUM ---
Discharge Summary Discharge Summary: ADMISSION DATE: 10/21/18 DISCHARGE DATE: 10/27/18 ADMISSION DIAGNOSES 1. Acute severe MR secondary to P2 chordal rupture 2. Acute pulmonary edema with respiratory failure DISCHARGE DIAGNOSES 1. Acute severe MR secondary to P2 chordal rupture 2. Acute pulmonary edema with respiratory failure 3. Acute post-op blood loss anemia PROCEDURES 10/22/18, Buck Call: Urgent complex mitral valve repair w #38 Physio ring, AtriClip exclusion of UZMA HPI 63F who presented at [facility] ED with c/o worsening SOB and cough found to have acute severe MR with associated pulmonary edema. Pt admitted for urgent mitral valve repair. HOSPITAL COURSE BY PROBLEM LIST 1. Acute severe MR secondary to P2 chordal rupture - associated with acute pulmonary edema and respiratory failure necessitating intubation and hemodynamic support with IABP. Taken urgently to OR where valve was successfully repaired. Antithrombotic prophylaxis w Coumadin, target INR 2-3, duration 3 months. 2. Acute post-op blood loss anemia - stable without the need for transfusions. CONDITION Good PERTINENT DISCHARGE CLINICAL INFORMATION Vitals: 101/58, 85 SR, 91% on 2L/min NC, at pre-op weight Exam: S1S2, No resp distress, ND, soft, NTP, LE with trace edema BL DISPOSITION Home, self-care ACTIVITY Pt was instructed on sternal precautions, activity limitations, and which problems to call [facility] with. Please see Discharge Plan in chart for specifics. DISCHARGE MEDICATIONS Continue: ASA, Simvastatin New: Coumadin 2mg daily (INR goal 2-3), [place] 5/325 1 tab q4h prn pain #20, Ibuprofen prn, Tylenol prn, Lasix 20 mg daily Stop n/a PENDING STUDIES/LABS 1. CXR prior to surgical follow-up 2. INR as per Coumadin Clinic FOLLOW-UP 1. Gerry Lindo, 11/01/18, 1:45 PM 2. Franko Mendez, as directed
--- NOTE | 2018-10-27 11:50 | PDHOMEO2F ---
Home Oxygen Face to Face Home Orders: I certify that a physician or a nurse practitioner or physician's collections assistant has had a [id number] encounter with this patient on the date of this order due to the diagnosis listed, which relates to the primary reason the patient requires home oxygen. Alternative treatments have been tried, or considered, and deemed ineffective. It is anticipated that supplemental oxygen will result in improvement with treatment. Home oxygen qualifying diagnosis: pulmonary edema, respiratory failure, severe MR SpO2 on room air (%): 80 Frequency of home oxygen needed: continuous Home oxygen liters per minute: 2 Home oxygen delivery device: nasal cannula Concentrator: Yes E-tanks for mobility and back up: Yes If ordering portable O2, is the patient mobile in the home?: Yes I certify that, based on these findings, the home oxygen is medically necessary for this patient for the following length of time. Length of time home oxygen needed: 1 month
--- NOTE | 2018-10-27 11:54 | ASMTLACE ---
LACE Length of stay for Answers: 4-6 days current admission Acuity / Level of Answers: Yes Care: Did the patient have an inpatient admission? Comorbidities - select Answers: Congestive heart failure all that apply # of Emergency department Answers: 1-2 visits in the last 6 months Score: 10 Date Signed: 10/27/2018 11:54 AM Electronically Signed By:Elena Medina RN
--- NOTE | 2018-10-27 11:57 | ASDISCHSUM ---
Discharge Information Plan Status:Home with No Needs Medically Cleared to Leave:10/26/2018 Discharge Date:10/26/2018 CM D/C Disposition:Home, Routine, Self-Care ADT D/C Disposition:Home, Routine, Self-Care Projected Discharge Date:10/26/2018 Transportation at D/C:Family Discharge Delay Reason: Follow-Up Date:10/26/2018 Discharge Slot: Final Diagnosis:CHF, MR, Pulmonary edema Placement Information Patient Contact Information Contact Name:MURTAZA Relationship: Address:[address] Home Phone: City:[place] Alternate Phone: [facility]/Zip Code:[place] [address] Email: Financial Information Financial Class:BCOP Primary [facility] Desc[facility] Primary Plan Number:[id number] Secondary Plan Desc: Secondary Plan Number: Assessment Information LACE LACE Length of stay for Answers: 4-6 days current admission Acuity / Level of Answers: Yes Care: Did the patient have an inpatient admission? Comorbidities - select Answers: Congestive heart failure all that apply # of Emergency department Answers: 1-2 visits in the last 6 months Score: 10 Date Signed: 10/27/2018 11:54 AM Electronically Signed By:Elena Medina RN [facility] CM Progress Note CM Note CM Note Notes: Pts case discussed w/ MANA Jacques. Pt is being transferred to ICU. Pt will go to the clinical laboratory aide w/ Dr. Mendez. Pt will eventually need open heart to fix her mitral valve. Pt will most likely be independent when medically stable. CM available for changes. Plan: Independent Date Signed: 10/21/2018 10:40 AM Electronically Signed By:MIAN Joya [facility] CM Progress Note CM Note CM Note Notes: Patient lives with her . OT recommending HM; PT recommending HC at this time. Patient has [place] [employer]. t mess with [facility] to see if they contract with [facility]. Date Signed: 10/24/2018 11:57 AM Electronically Signed By:Kori Kay LCSW [facility] CM Progress Note CM Note CM Note Notes: Spoke with pt's RN and PT. Pt had dramatic improvement in mobility today and PT is now recommending to discharge iindependently. [facility] notified. No CM needs noted at this time. CM to follow. D/C Plan: Independent Date Signed: 10/26/2018 03:48 PM Electronically Signed By:Tanja Tavares Case Management Discharge Plan Note Case Management Discharge Discharge Order Complete? Answers: Yes Patient to Obtain Answers: via Family Medications Transportation Arranged Answers: Family/Friends Discharge Comments Notes: 10/27/2018 Case Management Note Pt to discharge home with outpatient cardiac rehab. Date Signed: 10/27/2018 11:55 AM Electronically Signed By:Elena Medina RN Intervention Information Intervention Type:*Incorrect Registration Date of Service:10/21/2018 10:50 AM Patient Type:Inpatient Staff Member:MANA Chamorro, Jenn Hours: Discipline: Severity: Comment:
[2018-10-27] MEDS ORDERED: WARFARIN SODIUM 2 MG TAB PO SCH (16:00)
== END 2018-10-27 14:03 | disposition home or self-care (01) | DRG 216 ==
LOC: OBSVTOIN 07:41 → F2W 08:28 → F2N 10:10 → F2W 10-24 13:18
PROVIDERS: ADMIT Family Medicine; ATTEND Thoracic Surgery (Cardiothoracic Vascular Surgery)
DX: I34.0 Nonrheumatic mitral (valve) insufficiency (principal); I50.1 Left ventricular failure, unspecified; J96.01 Acute respiratory failure with hypoxia; E78.5 Hyperlipidemia, unspecified; D62 Acute posthemorrhagic anemia; E87.70 Fluid overload, unspecified
CPT/HCPCS: 82435-PO; 82565-PO; 82947-PO; 83605-PO; 84132-PO; 84295-PO; 84484-PO; 84520-PO; 85014-PO; 96365; 97116-GP; 97161-GP; 97166-GO; 97530-GO; 97530-GP; 97535-GO; G0009; J0153; J0171; J0282; J0690; J1265; J1644; J1815; J1885; J1940; J1956; J2001; J2150; J2250; J2260; J2270; J2370; J2405; J2704; J2720; J2930; J3010; J3475; J3480; P9041; Q9967

== ENCOUNTER → 2018-11-01 | Outpatient (CLI) | payer OTHER | LOC: FIMAGING 12:36 | PROVIDERS: ATTEND Thoracic Surgery (Cardiothoracic Vascular Surgery) | DX: J90 Pleural effusion, not elsewhere classified (principal); Z95.2 Presence of prosthetic heart valve ==

== ENCOUNTER → 2018-11-11 | Outpatient (CLI) | payer OTHER | LOC: FIMAGING 10:46 → EDSTATUS 10:49 | PROVIDERS: ATTEND Thoracic Surgery (Cardiothoracic Vascular Surgery) | DX: J90 Pleural effusion, not elsewhere classified (principal); Z95.2 Presence of prosthetic heart valve ==